=== PATIENT | male | born 1955 | race Caucasian/White ===

== ENCOUNTER 2019-08-06 12:26 | Outpatient (CLI) | payer MEDICARE, MEDICAID, SELFPAY ==
--- NOTE | ~2019-08-06 | CT_ITS ---
EXAMINATION: CT lung screening EXAM DATE: 08/06/2019 12:55 INDICATION: Personal history of nicotine dependence. Chest pain and shortness of breath. TECHNIQUE: Spiral low dose CT of the chest without contrast. Axial, coronal and sagittal images were reviewed. The dose-length product (DLP) for this examination was 74.92 mGy-cm. The exposure was ta ilored according to patient size (auto mA exposure control), and iterative reconstruction (ASIR) was used as additional dose reduction technique. Comparison is made to prior examination from 03/09/2017. FINDINGS: There is severe emphysema. Previously seen left lower lobe 5 mm nodule has resolved. Some small scattered linear post infectious opacities, regions of scarring. There are no suspicious opaci ties. Tracheobronchial tree is patent. There is no mediastinal, hilar or axillary lymphadenopathy. There are no pleural or pericardial effusions. There is no pneumothorax. Heart normal in size. There is mild to moderate coronary arterial calcification, arterial sclerosis. Upper abdomen is unr emarkable. There is thoracic spondylosis without osteoblastic or osteolytic lesions identified. IMPRESSION: Lung-RADS category 2, benign appearance or behavior (<1% chance of malignancy); recommend continued LDCT screening in 1 year. Reviewed, dictated and finalized at location A.
== END 2019-08-06 12:27 | disposition home or self-care (01) ==
PROVIDERS: PCP Internal Medicine; Visit Provider Internal Medicine
DX: Z12.2 Encounter for screening for malignant neoplasm of respiratory organs (principal); Z87.891 Personal history of nicotine dependence
CPT/HCPCS: G0297

== ENCOUNTER 2019-10-10 08:39 | Inpatient (IN) | payer MEDICARE, MEDICAID, SELFPAY ==
[2019-10-10] VITALS (23 sets, daily range): BP systolic 108–164; BP diastolic 72–114; PULSE 74–105; RESP 5–24; TEMP 36.3–36.8; O2SAT 84–98; BMI 19.1
--- NOTE | ~2019-10-10 | XR_ITS ---
EXAMINATION: XR chest 1V portable DATE: 10/10/2019 09:16 INDICATION: Shortness of breath. TECHNIQUE: A single frontal view of the chest was obtained on 2 radiographs. COMPARISON: Chest single view 02/18/2016, chest CT 08/06/2019 FINDINGS: The lungs are hyperexpanded with lucencies, consistent with emphysema. There is mild scarri ng in right lower lung zone. No pleural effusion or pneumothorax. The heart size is normal. IMPRESSION: 1. Severe emphysema. Reviewed, dictated and finalized at location A. IMPRESSION: 1. Severe emphysema.
--- NOTE | 2019-10-10 08:45 | ECG_ITS ---
Measurements Intervals [place] Rate: 93 P: 88 TN: 130 QRS: 82 QRSD: 90 T: 60 QT: 358 QTc: 447 Interpretive Statements SINUS RHYTHM POSSIBLE LEFT ATRIAL ENLARGEMENT LOW QRS VOLTAGE IN LIMB LEADS BORDERLINE R WAVE PROGRESSION, ANTERIOR LEADS BORDERLINE ST ABNORMALITY- INFERIOR LEADS BASELINE ARTIFACT- I, II, III, V1-V3 BORDERLINE ECG Electronically Signed On 10-10-2019 16:17:37 CDT by Osvaldo Joyner D.O.
--- NOTE | 2019-10-10 08:47 | ED.SOB ---
HPI - SOB/Dyspnea General Chief Complaint: Shortness of Breath/Dyspnea Stated Complaint: Diff breathing x 2 days History of Present Illness HPI Narrative: SOB for the past 2 days. Started after getting a pill caught in his throat. He has had a minimally productive cough. No fever. He has been too SOB to eat or sleep. Brought in by EMS on NRB. History mildly limited by condition. Related Data Home Medications Medication Instructions Recorded Confirmed albuterol sulfate 2.5 mg INHALATION Q4-6H PRN 02/26/19 10/10/19 citalopram 20 mg tablet 40 mg PO DAILY 02/26/19 10/10/19 omeprazole 40 mg capsule,delayed 40 mg PO DAILY 02/26/19 10/10/19 release oxybutynin chloride 10 mg 10 mg PO DAILY 02/26/19 10/10/19 tablet,extended release 24 hr simvastatin 20 mg tablet 20 mg PO DAILY 02/26/19 10/10/19 budesonide-formoterol HFA 160 2 puff INHALATION Q12H 02/27/19 10/10/19 mcg-4.5 mcg/actuation aerosol inhaler ropinirole 1 mg tablet 1 mg PO HS 02/27/19 10/10/19 ipratropium bromide 0.03 % nasal 2 spray NASAL BID 07/14/19 10/10/19 spray Allergies Allergy/AdvReac Type Severity Reaction Status Date / Time No Known Allergies Allergy Unknown Verified 10/10/19 12:12 Review of Systems Review of Systems: All systems reviewed & are unremarkable except as noted in HPI and below Constitutional: Constitutional: Reports fever(s) Cardiovascular: Cardiovascular: Denies chest pain Respiratory: Respiratory: Reports cough, Reports dyspnea and Reports wheezing Gastrointestinal: Gastrointestinal: Denies nausea PMFSH Past Medical History Medical History Chronic respiratory failure with hypoxia COPD, severe Former smoker Social History Social History (Updated 10/01/19 @ 13:39 by Viviane Abraham, [facility]) Smoking packs per day: 5 Smoking cigarettes per day: 100.0 Years smoked: 35 Smoking pack-years: 175.00 Smoking status: Former smoker Smoking end date: 03/12/07 Alcohol intake: former Substance use: former Substance use type: marijuana Last use: 40 years ago Spiritual care concerns: No Exam Const: General: alert and ill appearing Orientation/consciousness: patient oriented x3 Other: Moderate distress HENMT: Head: normal to inspection Eyes: Pupils: Equal, round and reactive pupils present Resp: Effort & Inspection: labored and tachypneic Auscultation: wheezes Cardio: Rate: tachycardic Rhythm: regular rhythm GI: GI Palp: Yes Soft to palpation and No Tenderness to palpation present (GI) Skin: General skin exam: normal color Neuro: General: patient oriented x3, moves all extremities and CN's II-XI intact bilaterally Extrem: General: no edema Course Vital Signs Vital signs: Vital Signs Temperature 36.3 C L 10/10/19 08:37 Pulse Rate 105 H 10/10/19 08:37 Respiratory Rate 20 10/10/19 08:37 Blood Pressure 164/114 H 10/10/19 08:37 Pulse Oximetry 97 10/10/19 08:37 Temperature 36.5 C 10/10/19 12:00 Pulse Rate 94 10/10/19 12:00 Respiratory Rate 21 H 10/10/19 12:00 Blood Pressure 145/84 H 10/10/19 12:00 Pulse Oximetry 97 10/10/19 12:00 MDM - SOB/Dyspnea MDM Narrative Medical decision making narrative: No consolidation on CXR. Continues to have significnat difficulty breathing despite continuous neb and solu-medrol. Differential Diagnosis Differential diagnosis: Likely acute exacerbation of chronic obstructive airways disease and community acquired pneumonia Medical Records Attestation: I reviewed the patient's medical records. Lab Data Attestation: I reviewed the patient's lab results. Result diagrams: 10/10/19 08:58 10/10/19 08:58 Labs: Lab Results 10/10/19 10/10/19 10/10/19 Range/Units 08:58 08:58 08:58 WBC 10.8 H (4.5-10.0) K/mm3 RBC 4.73 (4.6-6.20) M/mm3 Hgb 15.5 (14.0-18.0) g/dL Hct 45.8 (42.0-52.0) % MCV 96.8 (80-100) fl MCH 32.8 (26-34) pg MCHC 33.8 (32-36) g/dl RDW 11.
[2019-10-10] MEDS: methylPREDNISolone SOD SUCC 125 MG VIAL IV PUSH (08:55)
[2019-10-10] MEDS: ALBUTEROL SULFATE NEB 2.5 MG/0.5 ML INH 10 MG INHALATION (08:59)
[2019-10-10] MEDS: IPRATROPIUM BR 0.02% INH SOLN 0.5 MG/2.5 ML VIAL 1 MG INHALATION (08:59)
[2019-10-10 09:07] LABS: Alveolar/Arterial O2 Gradient 433.4 mmHg; Base Excess ABG 0.8 mEq/l (+/-2.0); Carboxyhemoglobin 0.9 % THb (0-2.0); Fractional Inspired Oxygen 100 %; HCO3 ABG 27.2 mEq/l (22.0-26.0); Methemoglobin ABG 0.4 %THb (0-1.5); Oxygen Content ABG 21.9 %vol (16.0-22.0); Oxygen Saturation ABG 99.5 % (95.0-100.0); Oxyhemoglobin 97.8 % THb (90.0-100.0); PCO2 ABG 49.7 mmHg (35.0-45.0); PO2 ABG 229.9 mmHg (80.0-100.0); Reduced Hemoglobin 0.9 %THb (0-5.0); Total Hemoglobin 15.6 g/dL (12.0-18.0); pH ABG 7.356 (7.350-7.450)
[2019-10-10 09:11] LABS: Device NON-REBREATHER MASK; Modified Allen's Test Pass; Site Drawn LEFT RADIAL
[2019-10-10 09:12] LABS: Basophils Absolute Auto 0.1 K/mm3 (0.0-0.1); Basophils Percent Auto 0.5 % (0.2-1.2); Eosinophils Absolute Auto 0.2 K/mm3 (0-0.3); Eosinophils Percent Auto 1.7 % (0-4.4); Hematocrit 45.8 % (42.0-52.0); Hemoglobin 15.5 g/dL (14.0-18.0); Immature Granulocyte Absolute 0.03 K/mm3 (0.00-0.031); Immature Granulocyte Percent A 0.3 % (0-0.5); Lymphocytes Absolute Auto 1.55 K/mm3 (0.9-3.2); Lymphocytes Percent Auto 14.4 % (18.3-44.2); Mean Corpuscular HGB Conc 33.8 g/dl (32-36); Mean Corpuscular Hemoglobin 32.8 pg (26-34); Mean Corpuscular Volume 96.8 fl (80-100); Mean Platelet Volume 9.4 fl (7.4-10.4); Monocytes Absolute Auto 1.3 K/mm3 (0.1-0.6); Monocytes Percent Auto 12.4 % (2.6-8.5); Neutrophils Absolute Auto 7.7 K/mm3 (1.3-6.7); Neutrophils Percent Auto 70.7 % (45.5-73.1); Platelet Count Result 278 k/mm3 (150-375); Red Blood Count 4.73 M/mm3 (4.6-6.20); Red Cell Distribution Width 11.7 % (11.5-14.5); White Blood Count 10.8 K/mm3 (4.5-10.0)
[2019-10-10 09:23] LABS: Anion Gap 13.5 mmol/L (7-16); Blood Urea Nitrogen 17 mg/dL (9-20); Calcium 9.4 mg/dL (8.4-10.2); Carbon Dioxide 30 mmol/L (22-30); Chloride 98 mmol/L (98-107); Estimated CRCL calculation 65 ml/min; Estimated Glomerular Filt Rate > 60; Glucose 93 mg/dL (75-110); Potassium 4.5 mmol/L (3.4-5.0); Sodium 137 mmol/L (137-145)
[2019-10-10] MEDS: OXYMETAZOLINE HCL 0.05% NAS 15 ML BTL (*BKC) 4 SPRAY NASAL (10:42)
--- NOTE | 2019-10-10 10:44 | PC.NURSE ---
Pt currently on 2L, this RN sat pt up to listen to lungs, and went over belongings list. Pt became very SOB. Pt O2 dropped into low 80s. This RN placed pt on 6 L. This RN encouraged pt to breath through his nose. Pt states he can't breath through his nose. This RN spoke with . new order for Afrin nasal spray
--- NOTE | 2019-10-10 11:44 | PC.NURSE ---
This patient, Terrence Dugan, was admitted to 2 Medical Room 259-01. Patient/family oriented to hospital policies and general routines including ID bracelet, bed and alarms, visiting hours, pain management, procedures, bathroom and other care routines, personal items, smoking policy, room service/diet, and visiting hours. Valuables list has been completed. Information on how to activate the Rapid Response Team has been discussed. Patient/Family are encouraged to report perceived risks to care and to ask questions if they do not understand what they are told or what they should do.
[2019-10-10] MEDS: LACTATED RINGERS 1,000 ML 75 ML IV CONT (12:02)
[2019-10-10] MEDS: IPRATROPIUM BR 0.02% INH SOLN 0.5 MG/2.5 ML VIAL INHALATION ×2 (14:31→20:56)
[2019-10-10] MEDS: ALBUTEROL SULFATE NEB 2.5 MG/0.5 ML INH 5 MG INHALATION ×2 (14:31→20:56)
--- NOTE | 2019-10-10 15:03 | PM.IMHP ---
H&P: HPI History of Present Illness Date/Time: 10/10/19 15:03 Chief complaint: COPD exacerbation Narrative: Terrence Dugan is a 63 year old maleWho has a history of end-stage COPD. He is followed by the pulmonology group here. The patient was last seen by Chaparro Torres on 10/01/2019. This was a 7 month follow-up for COPD with chronic oxygen. The patient typically wears 2-3 L at rest and 3-4 L with exertion. The patient is supposed to be wearing at night but he takes care of his mother who has dementia and feels that he cannot hear her with the oxygen on at night. The patient has decided that he does not want to have an evaluation for lung transplant because he is taking care of his mother. The patient stated for the last 2 days he has gotten more short of breath than normal. He has been coughing but has not had any fever chills. He has been using his nebulizer treatments more recently. He also has inhaled steroids but no oral steroids at home. I asked him if he had called the patient transition specialist and he said he had not. He saw the last on 10/01/2019 but was not having these difficulties that he has had the last 2 days. He has had a nonproductive cough. He is now to 5 L per nasal cannula. The patient stated that he had smoked up to 5 packs of cigarettes a day and then got down to 2 and half packs a cigarettes a day. He attempted to quit several times. He stated he finally quit in Two thousand eight. Chest x-ray was read as severe emphysema. The patient did have a CT the lung on 08/06/2019 which shows lung rads category 2 benign appearance are behavior. Suggested 1 year screening. The patient was given a nebulizer treatment and high-dose Solu-Medrol in the emergency room. The patient is able to talk in full sentences but gets short of breath with minimal exertion. The patient denies any sleep apnea. The patient was concerned about being admitted to the hospital as his mother has dementia and he is the sole provider for her. the patient contacted many of his friends and was finally able to acquire assistance with his mother so he agreed to stay in the hospital. I have spent at least 60 minutes with the patient today for admission date of service 10/10/2019 Review of Systems Review of Systems: All systems reviewed & are unremarkable except as noted in HPI and below Constitutional: Constitutional: Reports as per HPI and Reports no additional constitutional complaints Eyes: Eyes: Reports as per HPI and Reports no additional eye complaints ENT: Reports system reviewed and no additional complaints, except as documented and Reports Normal hearing present Cardiovascular: Cardiovascular: Reports no additional cardiovascular complaints Respiratory: Respiratory: Reports no additional respiratory complaints and Reports no additional respiratory complaints Gastrointestinal: Gastrointestinal: Reports as per HPI and Reports no additional gastrointestinal complaints Musculoskeletal: Musculoskeletal: Reports no additional musculoskeletal complaints Integumentary/Breasts: Skin/Breast: Reports system reviewed and no additional complaints, except as docu and Reports as per HPI Neurologic: Reports system reviewed and no additional complaints, except as documented, Reports as per HPI and Reports Normal hearing present Psychiatric: Psychiatric: Reports no additional psychiatric complaints and Reports as per HPI Endocrine: Endocrine: Reports no additional endocrine complaints Hematologic/Lymphatic: Hematologic/Lymphatic: Reports no additional hematologic/lymphatic complaints Allergic/Immunologic: Allergic/Immunologic: Reports no additional allergic/immunologic complaints [facility] Past Medical History Medical History (Updated 10/10/19 @ 15:12 by Phuong Oden NP) Anxiety and depression Chronic respiratory failure with hypoxia he chronically wears 2-3 L at rest and 3-4 with exertion COPD, severe Former smoker Hip fracture requiring operative repa
[2019-10-10] MEDS: methylPREDNISolone SOD SUCC 125 MG VIAL 80 MG IV PUSH ×2 (17:16→23:25)
[2019-10-10] MEDS: rOPINIRole HCL 1 MG TABLET PO (20:14)
[2019-10-10] MEDS: IPRATROPIUM NASAL SPRAY 0.03% 15 ML BOTTLE 2 SPRAY NASAL (20:14)
[2019-10-10] MEDS: PANTOPRAZOLE 40 MG TABLET PO (20:14)
[2019-10-10] MEDS: TEMAZEPAM 15 MG CAPSULE PO (22:26)
[2019-10-11] VITALS (21 sets, daily range): BP systolic 103–139; BP diastolic 64–89; PULSE 79–108; RESP 18–24; TEMP 36.8–37.2; O2SAT 91–99
[2019-10-11] MEDS: IPRATROPIUM BR 0.02% INH SOLN 0.5 MG/2.5 ML VIAL INHALATION ×4 (01:23→20:30)
[2019-10-11] MEDS: ALBUTEROL SULFATE NEB 2.5 MG/0.5 ML INH 5 MG INHALATION ×4 (01:23→20:30)
[2019-10-11] MEDS: methylPREDNISolone SOD SUCC 125 MG VIAL 80 MG IV PUSH (05:50)
[2019-10-11] MEDS: PANTOPRAZOLE 40 MG TABLET PO ×2 (08:57→21:01)
[2019-10-11] MEDS: IPRATROPIUM NASAL SPRAY 0.03% 15 ML BOTTLE 2 SPRAY NASAL ×2 (08:57→21:02)
[2019-10-11] MEDS: CITALOPRAM HYDROBROMIDE 20 MG TABLET 40 MG PO (08:57)
[2019-10-11] MEDS: SIMVASTATIN 20 MG TABLET PO (08:58)
[2019-10-11 09:13] LABS: Anion Gap 14.9 mmol/L (7-16); Blood Urea Nitrogen 24 mg/dL (9-20); Calcium 9.2 mg/dL (8.4-10.2); Carbon Dioxide 28 mmol/L (22-30); Chloride 97 mmol/L (98-107); Estimated CRCL calculation 84 ml/min; Estimated Glomerular Filt Rate > 60; Glucose 140 mg/dL (75-110); Potassium 4.9 mmol/L (3.4-5.0); Sodium 135 mmol/L (137-145)
--- NOTE | 2019-10-11 12:10 | PM.IMPN ---
Progress Note: A&P Assessment and Plan (1) Acute exacerbation of chronic obstructive airways disease: Code(s): J44.1 - Chronic obstructive pulmonary disease with (acute) exacerbation Status: Acute Assessment and Plan: aspiration seem to trigger this episode when steroids increase activity as tolerated (2) Chronic respiratory failure with hypoxia: Code(s): J96.11 - Chronic respiratory failure with hypoxia Status: Chronic Assessment and Plan: continue oxygen therapy (3) Hypertension: Qualifiers: Hypertension type: unspecified Qualified Code(s): I10 - Essential (primary) hypertension Code(s): I10 - Essential (primary) hypertension Status: Chronic Assessment and Plan: stable on current regimen (4) Anxiety and depression: Code(s): F41.9 - Anxiety disorder, unspecified; F32.9 - Major depressive disorder, single episode, unspecified Status: Chronic Assessment and Plan: continue current regimen Subjective Date/time seen: 10/11/19 12:10 Interval history: 2 days [employer] choked on 2 pills. Tried to force it down with water and choked more. Baseline oxygen requirement is 3 L. Some pain right chest with coughing. Review of Systems Review of Systems: All systems reviewed & are unremarkable except as noted in HPI and below Exam Narrative: Exam Narrative: HEENT: EOMI, PERRL, sclerae nonicteric, pharyngeal mucosa pink and intact NECK: No JVD, adenopathy, or thyromegaly CHEST: Coarse BS with mild tachypnea HEART: NL S1/S2, regular, no murmur ABDOMEN: BS+, soft, nontender, no mass, no bruits EXTREMITIES: No cyanosis, edema, or clubbing NEUROLOGIC: CN intact and symmetric to inspection. MUSCULOSKELETAL: Tone and strength symmetric. PSYCH: Alert. Oriented to person, place, and time. Objective Data Vital Signs Vital Signs: Vital Signs - 24 hr 10/10/19 14:00 10/10/19 14:33 10/10/19 14:36 Temperature 98 F Pulse Rate 86 92 Respiratory Rate 20 20 Blood Pressure 157/83 H Pulse Oximetry 98 98 10/10/19 16:00 10/10/19 20:00 10/10/19 20:57 Temperature Pulse Rate 99 92 88 Respiratory Rate 18 Blood Pressure Pulse Oximetry 10/10/19 21:08 10/10/19 22:00 10/11/19 00:00 Temperature 98.2 F Pulse Rate 89 91 91 Respiratory Rate 18 20 Blood Pressure 145/79 H Pulse Oximetry 95 10/11/19 01:23 10/11/19 01:30 10/11/19 01:40 Temperature Pulse Rate 79 84 84 Respiratory Rate 18 18 18 Blood Pressure Pulse Oximetry 98 10/11/19 04:00 10/11/19 06:00 10/11/19 07:55 Temperature 98.2 F Pulse Rate 80 83 82 Respiratory Rate 18 18 Blood Pressure 119/64 Pulse Oximetry 99 10/11/19 07:57 10/11/19 08:00 10/11/19 08:01 Temperature Pulse Rate 91 86 Respiratory Rate 18 Blood Pressure Pulse Oximetry 98 Intake/Output Intake/Output: Intake & Output 10/08/19 10/09/19 10/10/19 10/11/19 23:59 23:59 23:59 23:59 Intake Total 1914 290 Output Total 250 500 Balance 1664 -210 Meds/Results Medications: Active Medications Generic Name Dose Route Start Last Admin Trade Name Nelson PRN Reason Stop Dose Admin Albuterol 5 mg 10/10/19 14:00 10/11/19 07:54 Albuterol Sulf Neb 2.5mg/0.5ml INHALATION 5 mg Q6HRT EARLINE Administration Budesonide/Formoterol Fumarate 2 puff 10/10/19 20:00 10/11/19 07:54 Symbicort 160-4.5 Mcg (*Sp) Inhaler INHALATION 2 puff Q12HRT EARLINE Administration Citalopram Hydrobromide 40 mg 10/11/19 09:00 10/11/19 08:57 Celexa PO 40 mg DAILY EARLINE Administration Ipratropium [place] 0.5 mg 10/10/19 14:00 10/11/19 07:54 Atrovent Neb INHALATION 0.5 mg Q6HRT EARLINE Administration Ipratropium [place] 2 spray 10/10/19 21:00 10/11/19 08:57 Atrovent Nasal [place] 0.03% NASAL 2 spray Q12HR EARLINE Administration Methylprednisolone Sodium Succinate 80 mg 10/10/19 18:00 10/11/19 05:50 Solu-Medrol IV PUSH 80 mg Q6H
--- NOTE | 2019-10-11 20:55 | PM.CNPUL ---
History of Present Illness History of Present Illness Consult date: 10/11/19 Requesting physician: Kacy Mayfield PA-C Reason for consult: COPD Chief complaint: COPD exacerbation Narrative: This patient was not seen during this stay, was discharged before I could do his consult. No consult was performed. [facility] Social History Social History Social History: The patient was once for 5 years and . He has no children. He was heavy drinker up until 1986 when he went to rehab. he stated that he smoked of the 5 packs of cigarettes a day after he quit drinking. He then cut down to 2 and half packs of cigarettes. He tried quitting several times but it was not until 2007 that he quit for good. He denied any marijuana or illicit drug use. He does not have a durable power assistant county attorney for healthcare. And he desires to be a DNR. He lives with his mother and takes care of her she has end-stage dementia. He is considered disabled. Smoking packs per day: 2.5 Smoking cigarettes per day: 50.0 Years smoked: 35 Smoking pack-years: 87.50 Smoking status: Former smoker Tobacco type: cigarettes Second hand tobacco smoke exposure: No Smoking end date: 03/12/07 Alcohol intake: former Substance use: never Substance use type: marijuana Last use: 40 years ago Gender identity (if verbalized by the patient): Male Spiritual care concerns: No Meds Home Medications and Allergies Home Medications Medication Instructions Recorded Confirmed Type citalopram 20 mg tablet 40 mg PO DAILY 02/26/19 10/16/19 History omeprazole 40 mg capsule,delayed 40 mg PO DAILY 02/26/19 10/16/19 History release oxybutynin chloride 10 mg 10 mg PO DAILY 02/26/19 10/16/19 History tablet,extended release 24 hr simvastatin 20 mg tablet 20 mg PO DAILY 02/26/19 10/16/19 History budesonide-formoterol HFA 160 2 puff INHALATION Q12H 02/27/19 10/16/19 History mcg-4.5 mcg/actuation aerosol inhaler ipratropium bromide 0.02 % 2.5 ml INHALATION Q6H PRN #150 ml 02/27/19 10/16/19 Rx solution for inhalation ropinirole 1 mg tablet 1 mg PO HS 02/27/19 10/16/19 History temazepam 15 mg capsule 15 mg PO .QHS PRN #30 cap 07/11/19 10/16/19 Rx ipratropium bromide 0.03 % nasal 2 spray NASAL BID 07/14/19 10/16/19 History spray albuterol sulfate 90 mcg/actuation 1 inhalation INHALATION Q4-6H PRN 10/01/19 10/16/19 Rx aerosol inhaler #8.5 gm prednisone See Rx Instructions .ROUTE 10/13/19 10/16/19 Rx .COMPLEX #21 tablet ipratropium-albuterol 3 ml INHALATION Q6H PRN 10/16/19 10/16/19 History finasteride [Proscar] 5 mg PO QAM 30 Days #30 tablet 10/17/19 Rx tamsulosin 0.4 mg PO QAM 30 Days #30 cap 10/17/19 Rx albuterol sulfate 5 mg INHALATION Q6HRT #30 ea 10/23/19 Rx alprazolam 0.25 mg PO TID PRN #30 tablet 10/23/19 Rx aspirin 81 mg PO QAM #30 tablet 10/23/19 Rx atorvastatin 40 mg PO HS #30 tablet 10/23/19 Rx trazodone 50 mg PO HS PRN #30 tablet 10/23/19 Rx Allergies Allergy/AdvReac Type Severity Reaction Status Date / Time No Known Allergies Allergy Unknown Verified 10/15/19 19:35 Vital Signs Vital Signs - 24 hr 10/10/19 20:57 10/10/19 21:08 10/10/19 22:00 Temperature 36.8 C Pulse Rate 88 89 91 Respiratory Rate 18 18 20 Blood Pressure 145/79 H Pulse Oximetry 95 10/11/19 00:00 10/11/19 01:23 10/11/19 01:30 Temperature Pulse Rate 91 79 84 Respiratory Rate 18 18 Blood Pressure Pulse Oximetry 10/11/19 01:40 10/11/19 04:00 10/11/19 06:00 Temperature 36.8 C Pulse Rate 84 80 83 Respiratory Rate 18 18 Blood Pressure 119/64 Pulse Oximetry 98 99 10/11/19 07:55 10/11/19 07:57 10/11/19 08:00 Temperature Pulse Rate 82 91 Respiratory Rate 18 Blood Pressure Pulse Oximetry 98 10/11/19 08:01 10/11/19 08:45 10/11/19 12:00 Temperature Pulse Rate 86 102 H Respiratory Rate 18 Blood Pressure Puls
[2019-10-11] MEDS: rOPINIRole HCL 1 MG TABLET PO (21:01)
[2019-10-11] MEDS: TEMAZEPAM 15 MG CAPSULE PO (22:25)
[2019-10-12] VITALS (18 sets, daily range): BP systolic 111–139; BP diastolic 60–84; PULSE 81–106; RESP 20–22; TEMP 36.9–37.2; O2SAT 89–97
[2019-10-12] MEDS: ALBUTEROL SULFATE NEB 2.5 MG/0.5 ML INH 5 MG INHALATION ×4 (02:17→19:50)
[2019-10-12] MEDS: IPRATROPIUM BR 0.02% INH SOLN 0.5 MG/2.5 ML VIAL INHALATION ×4 (02:18→19:50)
[2019-10-12 08:32] LABS: Blood Urea Nitrogen 24 mg/dL (9-20); Calcium 8.7 mg/dL (8.4-10.2); Carbon Dioxide 32 mmol/L (22-30); Chloride 95 mmol/L (98-107); Estimated CRCL calculation 64 ml/min; Estimated Glomerular Filt Rate > 60; Glucose 93 mg/dL (75-110); Sodium 133 mmol/L (137-145)
[2019-10-12] MEDS: PANTOPRAZOLE 40 MG TABLET PO ×2 (09:59→20:34)
[2019-10-12] MEDS: IPRATROPIUM NASAL SPRAY 0.03% 15 ML BOTTLE 2 SPRAY NASAL ×2 (09:59→20:34)
[2019-10-12] MEDS: CITALOPRAM HYDROBROMIDE 20 MG TABLET 40 MG PO (09:59)
[2019-10-12] MEDS: predniSONE 20 MG TABLET 40 MG PO (09:59)
[2019-10-12] MEDS: SIMVASTATIN 20 MG TABLET PO (09:59)
--- NOTE | 2019-10-12 12:29 | PM.IMPN ---
Progress Note: A&P Assessment and Plan (1) Acute exacerbation of chronic obstructive airways disease: Code(s): J44.1 - Chronic obstructive pulmonary disease with (acute) exacerbation Status: Acute Assessment and Plan: This seemed to have been triggered by an episode of aspiration in which he choked on 2 pills and had severe episode of coughing after. Continue steroid taper. Continue bronchodilators Supplemental O2. He is maintaining adequate oxygenation on his chronic 3L. Increase activity as tolerated Will add short course of Mucinex to assist with mobilizing secretions Dr. Ramirez had been consulted and recommendations are appreciated. He is established with Dr. Ramirez. (2) Chronic respiratory failure with hypoxia: Code(s): J96.11 - Chronic respiratory failure with hypoxia Status: Chronic Assessment and Plan: He is on oxygen 2-3L rest and 3-4L with exertion. He has been instructred to wear O2 with sleep but doesn't want to. He tracks his saturations at home. continue oxygen therapy. Goal is 90-94% (3) Hypertension: Qualifiers: Hypertension type: unspecified Qualified Code(s): I10 - Essential (primary) hypertension Code(s): I10 - Essential (primary) hypertension Status: Chronic Assessment and Plan: BP evaluated and is well controlled. He does not appear to be on any antihypertensives on home regimen. Continue to monitor blood pressures closely. (4) Anxiety and depression: Code(s): F41.9 - Anxiety disorder, unspecified; F32.9 - Major depressive disorder, single episode, unspecified Status: Chronic Assessment and Plan: Chronic and stable. Continue citalopram Subjective Date/time seen: 10/12/19 12:29 Interval history: Date of service: 10/12/2019 Mr. Dugan reports overall he feels improved but is still short of breath. He feels like he is still having increased work of breathing. He has a dry cough and feels that he is unable to mobilize his secretions. He has pain in his right costal region and anterior sternal region when he has coughing episodes. He also complains of a tension type headache that worsens with cough. He has had very minimal sputum production that he described as brown in color. He denies fever, chills, nausea, vomiting, dizziness, lightheadedness, abdominal pain, diarrhea, palpitations, bleeding, or bruising. His appetite has been good. Review of Systems Review of Systems: Narrative: A 12 point review of systems was reviewed with pertinent positives and negatives as per HPI. Exam Narrative: Exam Narrative: Mr. Dugan is examined alone today. He is a well nourished 63 year old male who is lying supine in bed. He appears comfortable and is in no acute distress. HR 88, BP 111/74, RR 20 T 98.9, 97% on 3L. Neuro: awake, alert and oriented x4, speech clear, no focal neuro deficits noted HEENMT: normocephalic, atraumatic, EOMI, sclerae anicteric, moist oral mucosa, tongue midline Neck: supple, no lymphadenopathy Respiratory: clear to auscultation bilaterally, mildly increased work of breathing Cardio: regular rate, regular rhythm, no murmur noted Abdomen: normal to inspection, soft, nontender, no masses, bowel sounds present : Extremities: no edema, no erythema, no pain to palpation, dorsal pedis pulses present bilaterally Skin: no rashes or lesions, warm and dry Psych: normal mood and affect Objective Data Vital Signs Vital Signs: Vital Signs - 24 hr 10/11/19 13:32 10/11/19 13:37 10/11/19 14:00 Temperature 98.8 F Pulse Rate 98 102 H 108 H Respiratory Rate 18 18 24 H Blood Pressure 103/65 Pulse Oximetry 95 10/11/19 16:00 10/11/19 20:00 10/11/19 20:30 Temperature Pulse Rate 100 94 94 Respiratory Rate 20 Blood Pressure Pulse Oximetry 92 10/11/19 20:41 10/11/19 21:02 10/11/19 22:00 Temperature 99.0 F Pulse Rate 95 95 97 Respiratory Rate 20 20
[2019-10-12] MEDS: rOPINIRole HCL 1 MG TABLET PO (20:34)
[2019-10-12] MEDS: guaiFENesin 12 HR 600 MG TABCR PO (20:34)
[2019-10-12] MEDS: TEMAZEPAM 15 MG CAPSULE PO (23:00)
[2019-10-13] VITALS (8 sets, daily range): BP systolic 127; BP diastolic 77; PULSE 78–104; RESP 16–20; TEMP 37; O2SAT 92–99
[2019-10-13] MEDS: IPRATROPIUM BR 0.02% INH SOLN 0.5 MG/2.5 ML VIAL INHALATION ×2 (02:02→08:35)
[2019-10-13] MEDS: ALBUTEROL SULFATE NEB 2.5 MG/0.5 ML INH 5 MG INHALATION ×2 (02:02→08:35)
[2019-10-13] MEDS: CITALOPRAM HYDROBROMIDE 20 MG TABLET 40 MG PO (08:22)
[2019-10-13] MEDS: guaiFENesin 12 HR 600 MG TABCR PO (08:22)
[2019-10-13] MEDS: IPRATROPIUM NASAL SPRAY 0.03% 15 ML BOTTLE 2 SPRAY NASAL (08:22)
[2019-10-13] MEDS: predniSONE 20 MG TABLET 40 MG PO (08:22)
[2019-10-13] MEDS: SIMVASTATIN 20 MG TABLET PO (08:23)
[2019-10-13] MEDS: PANTOPRAZOLE 40 MG TABLET PO (08:23)
[2019-10-13 08:49] LABS: Anion Gap 10.2 mmol/L (7-16); Blood Urea Nitrogen 22 mg/dL (9-20); Calcium 8.5 mg/dL (8.4-10.2); Carbon Dioxide 34 mmol/L (22-30); Chloride 95 mmol/L (98-107); Estimated CRCL calculation 73 ml/min; Estimated Glomerular Filt Rate > 60; Glucose 93 mg/dL (75-110); Potassium 4.2 mmol/L (3.4-5.0); Sodium 135 mmol/L (137-145)
--- NOTE | 2019-10-13 10:06 | PM.DS ---
DS: Admitting Diagnosis Admitting Diagnosis Admitting Diagnosis: Chronic respiratory failure with hypoxia DS: Discharge Diagnosis Discharge Diagnosis (1) Acute exacerbation of chronic obstructive airways disease: Code(s): J44.1 - Chronic obstructive pulmonary disease with (acute) exacerbation Status: Acute Assessment and Plan: This seemed to have been triggered by an episode of aspiration in which he choked on 2 pills and then complained of shortness of breath and cough. CXR shows severe emphysema. Aspiration pneumonia was considered, however there was no evidence of consolidation on x-ray and he did not have fever or additional signs of infection. He did not have sputum production and antibiotics were not felt to be warranted. Preliminary blood culture showed NGTD and final cultures will be monitored. He was started on IV solumedrol and transitioned to PO prednisone. He received nebulized breathing treatments. He maintained adequate oxygenation on his typical 2-3L O2. He will continue a PO prednisone taper. (2) Chronic respiratory failure with hypoxia: Code(s): J96.11 - Chronic respiratory failure with hypoxia Status: Chronic Assessment and Plan: He is established with pulmonology. He is on oxygen 2-3L rest and 3-4L with exertion. He has been instructred to wear O2 with sleep but he does not. He tracks his saturations at home. Continue oxygen therapy. Goal is 90-94% (3) Hypertension: Qualifiers: Hypertension type: unspecified Qualified Code(s): I10 - Essential (primary) hypertension Code(s): I10 - Essential (primary) hypertension Status: Chronic Assessment and Plan: BP evaluated and was well controlled. He does not appear to be on any antihypertensives on home regimen. (4) Anxiety and depression: Code(s): F41.9 - Anxiety disorder, unspecified; F32.9 - Major depressive disorder, single episode, unspecified Status: Chronic Assessment and Plan: Chronic and stable. Continue citalopram DS: Summary Hospital Course Reason for hospitalization: Shortness of breath Hospital Course: Date of admission: 10/10/2019 Date of discharge: 10/13/2019 Terrence Dugan is a 63-year-old male former smoker with a history of severe COPD and chronic respiratory failure with hypoxia who presented to the emergency department on 10/10/2019 with complaints of shortness of breath that has been ongoing for 2 days. This began after he choked on 2 pills. He complained nonproductive cough. He did not have any fevers. he was brought in via EMS on non-rebreather.At presentation, AVSS, WBC 10.8, electrolytes stable, ABG with normal O2 saturation and normal pH, and CXR showing severe emphysema. He was admitted to the hospitalist service for further evaluation management his COPD exacerbation. He was treated with steroids and bronchodilators. he denied have dysphagia or odynophagia. He was able to tolerate swallowing liquids, solid foods, and pills. His symptoms improved and he requested discharge. Given his stable oxygen requirements, he was determined to no longer require inpatient care. He will continue a prednisone taper. We discussed worrisome signs and symptoms for which he should return as well as his medications. All of his questions were answered. I encouraged him to take only one medication at a time. Please see above for further details. He was discharged home in hemodynamically stable condition on 10/13/2019. Status at Discharge Functional status at discharge: independent ambulation Overall status at discharge: patient is progressing back to baseline Time Spent with Patient Time attestation: Total time spent providing and/or coordinating discharge services: 41 minutes Time spent: Greater than 30 minutes Exam Narrative: Exam Narrative: Mr. Dugan is examined alone today. He is a well nourished 63 year old male who is lying supine in bed. He bryan
== END 2019-10-13 14:15 | disposition home or self-care (01) | DRG 191 ==
LOC: ANHED 09:36 → ANH2MED 12:03
PROVIDERS: Internal Medicine; Admitting Provider Family Medicine; Emergency Provider Emergency Medicine; PCP Internal Medicine; Visit Provider Physician Assistant
DX: J44.1 Chronic obstructive pulmonary disease with (acute) exacerbation (principal); J96.11 Chronic respiratory failure with hypoxia; Z87.891 Personal history of nicotine dependence; G47.00 Insomnia, unspecified; I10 Essential (primary) hypertension
CPT/HCPCS: 36415; 36600; 71045; 80048; 82375; 82805; 83050; 85025; 87040; 93005; 94640; 96374; 99285; A9270; J2930; J7120; J7512

== ENCOUNTER 2019-10-15 16:11 | Inpatient (IN) | payer MEDICARE, MEDICAID, SELFPAY ==
[2019-10-15] VITALS (8 sets, daily range): BP systolic 110–160; BP diastolic 70–100; PULSE 82–104; RESP 18–24; TEMP 37.2; O2SAT 95–98; BMI 18.4
--- NOTE | ~2019-10-15 | XR_ITS ---
EXAMINATION: XR chest 2V EXAM DATE: 10/15/2019 17:00 INDICATION: Shortness of breath. TECHNIQUE: Frontal and lateral projections of the chest obtained and reviewed. Comparison is made to prior examination from 10/10/2019. FINDINGS: Severe hyperinflation. The lungs are clear. There are no pleural effusions. The cardiome diastinal silhouette is within normal limits. There is no pneumothorax suspected. The bones and sof t tissues are unremarkable. IMPRESSION: 1. No acute cardiopulmonary findings. 2. Hyperinflation. Reviewed, dictated and finalized at location A.
--- NOTE | 2019-10-15 16:31 | ECG_ITS ---
Measurements Intervals [place] Rate: 101 P: 91 WA: 120 QRS: 95 QRSD: 83 T: 132 QT: 351 QTc: 455 Interpretive Statements SINUS TACHYCARDIA LIMB LEAD REVERSAL POSSIBLE RIGHT ATRIAL ENLARGEMENT POSSIBLE LEFT ATRIAL ENLARGEMENT DELAYED PRECORDIAL R/S TRANSITION LOW QRS VOLTAGE IN LIMB LEADS BASELINE ARTIFACT- II, III, AVR, AVL, AVF, V1-V3 BORDERLINE ECG Electronically Signed On 10-15-2019 17:54:59 CDT by Osvaldo Joyner D.O.
[2019-10-15 16:52] LABS: Basophils Percent Auto 0.1 % (0.2-1.2); Hematocrit 45.5 % (42.0-52.0); Hemoglobin 15.6 g/dL (14.0-18.0); Immature Granulocyte Absolute 0.06 K/mm3 (0.00-0.031); Immature Granulocyte Percent A 0.4 % (0-0.5); Lymphocytes Absolute Auto 0.56 K/mm3 (0.9-3.2); Lymphocytes Percent Auto 4.1 % (18.3-44.2); Mean Corpuscular HGB Conc 34.3 g/dl (32-36); Mean Corpuscular Hemoglobin 32.5 pg (26-34); Mean Corpuscular Volume 94.8 fl (80-100); Mean Platelet Volume 9.8 fl (7.4-10.4); Monocytes Absolute Auto 1.2 K/mm3 (0.1-0.6); Monocytes Percent Auto 8.6 % (2.6-8.5); Neutrophils Absolute Auto 11.8 K/mm3 (1.3-6.7); Neutrophils Percent Auto 86.8 % (45.5-73.1); Platelet Count Result 312 k/mm3 (150-375); Red Cell Distribution Width 11.2 % (11.5-14.5); White Blood Count 13.6 K/mm3 (4.5-10.0)
--- NOTE | 2019-10-15 17:14 | ED.GENADULT ---
HPI - General Adult General Chief complaint: Shortness of Breath/Dyspnea Stated complaint: CP Time Seen by Provider: 10/15/19 16:17 History of Present Illness HPI narrative: Patient is a 63 y/o male complaining moderate SOB since yesterday. He uses Nebulizer which helps his breathing. He has some cough and chest pain. He also developed leg swelling yesterday. He denies any fever. He was recently hospitalized for COPD. He is on home O2 at 3L/NC. Related Data Home Medications Medication Instructions Recorded Confirmed albuterol sulfate 2.5 mg INHALATION Q4-6H PRN 02/26/19 10/10/19 citalopram 20 mg tablet 40 mg PO DAILY 02/26/19 10/10/19 omeprazole 40 mg capsule,delayed 40 mg PO DAILY 02/26/19 10/10/19 release oxybutynin chloride 10 mg 10 mg PO DAILY 02/26/19 10/10/19 tablet,extended release 24 hr simvastatin 20 mg tablet 20 mg PO DAILY 02/26/19 10/10/19 budesonide-formoterol HFA 160 2 puff INHALATION Q12H 02/27/19 10/10/19 mcg-4.5 mcg/actuation aerosol inhaler ropinirole 1 mg tablet 1 mg PO HS 02/27/19 10/10/19 ipratropium bromide 0.03 % nasal 2 spray NASAL BID 07/14/19 10/10/19 spray acetaminophen [Tylenol] 650 mg PO HS 10/15/19 calcium polycarbophil [Fiber-Lax] 1,250 mg PO HS 10/15/19 prednisone 10 mg PO DAILY 10/15/19 10/15/19 Allergies Allergy/AdvReac Type Severity Reaction Status Date / Time No Known Allergies Allergy Unknown Verified 10/15/19 19:35 Review of Systems Constitutional: Constitutional: Denies chills, Denies fever(s), Denies headache(s) and Denies weakness Eyes: Eyes: Denies blurry vision ENT: Denies headache(s) and Denies neck pain Cardiovascular: Cardiovascular: Reports chest pain, Reports leg edema and Reports dyspnea Respiratory: Respiratory: Reports cough and Reports dyspnea Gastrointestinal: Gastrointestinal: Denies abdominal pain, Denies diarrhea, Denies nausea and Denies vomiting Genitourinary: Genitourinary: Denies hematuria and Denies dysuria Musculoskeletal: Musculoskeletal: Denies back pain and Denies neck pain Neurologic: Denies headache(s) and Denies weakness PMFSH Past Medical History Medical History Anxiety and depression Chronic respiratory failure with hypoxia he chronically wears 2-3 L at rest and 3-4 with exertion COPD, severe Former smoker Hip fracture requiring operative repair pinning History of alcohol abuse Hyperlipidemia Hypertension Surgical History Surgical History History of hip surgery pinnning Family History Family History Mother Dementia Father 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 Social History Social History Social History: The patient was once for 5 years and . He has no children. He was heavy drinker up until 1986 when he went to rehab. he stated that he smoked of the 5 packs of cigarettes a day after he quit drinking. He then cut down to 2 and half packs of cigarettes. He tried quitting several times but it was not until 2007 that he quit for good. He denied any marijuana or illicit drug use. He does not have a durable power real estate associate attorney for healthcare. And he desires to be a DNR. He lives with his mother and takes care of her she has end-stage dementia. He is considered disabled. Smoking packs per day: 2.5 Smoking cigarettes per day: 50.0 Years smoked: 35 Smoking pack-years: 87.50 Smoking status: Former smoker Tobacco type: cigarettes Second hand tobacco smoke exposure: No Smoking end date: 03/12/07 Alcohol intake: former Substance use: never Substance use type: marijuana Last use: 40 years ago Gender identity (if verbalized by the patient): Male Spiritual care concerns: No Exam Const: General: no acute distress and well developed
[2019-10-15 17:58] LABS: Anion Gap 8.7 mmol/L (7-16); Blood Urea Nitrogen 26 mg/dL (9-20); Calcium 8.7 mg/dL (8.4-10.2); Carbon Dioxide 34 mmol/L (22-30); Chloride 96 mmol/L (98-107); Estimated Glomerular Filt Rate > 60; Glucose 116 mg/dL (75-110); Potassium 4.7 mmol/L (3.4-5.0); Sodium 134 mmol/L (137-145)
[2019-10-15] MEDS: IPRATROPIUM BR 0.02% INH SOLN 0.5 MG/2.5 ML VIAL INHALATION (18:26)
[2019-10-15] MEDS: ALBUTEROL SULFATE NEB 2.5 MG/0.5 ML INH INHALATION (18:26)
[2019-10-15 18:30] LABS: Alveolar/Arterial O2 Gradient 100.9 mmHg; Base Excess ABG 7.1 mEq/l (+/-2.0); Fractional Inspired Oxygen 32 %; HCO3 ABG 33.9 mEq/l (22.0-26.0); Oxygen Content ABG 20.4 %vol (16.0-22.0); Oxygen Saturation ABG 91.5 % (95.0-100.0); Oxyhemoglobin 90.2 % THb (90.0-100.0); PCO2 ABG 55.6 mmHg (35.0-45.0); PO2 ABG 62.2 mmHg (80.0-100.0); PO2 FiO2 Ratio Arterial Blood 1.94 %; Total Hemoglobin 16.1 g/dL (12.0-18.0); pH ABG 7.403 (7.350-7.450)
[2019-10-15 18:31] LABS: Device NASAL CANNULA; Modified Allen's Test Pass; Site Drawn LEFT RADIAL
--- NOTE | 2019-10-15 20:00 | PC.NURSE ---
Called lab to add on D-Dimer
[2019-10-15 20:27] LABS: D Dimer 0.27 ug/mL (<0.48)
[2019-10-15 20:52] LABS: NT Pro B Type Natriuretic Pept 773 PG/ML (5-100)
[2019-10-15 21:00] LABS: Troponin I 0.225 ng/mL (0.000-0.034)
[2019-10-15] MEDS: ASPIRIN 81 MG CHEWABLE TABLET 324 MG PO (22:26)
[2019-10-15] MEDS: FUROSEMIDE INJ 40 MG/4 ML VIAL IV PUSH (22:27)
--- NOTE | 2019-10-15 22:51 | PM.IMHP ---
H&P: HPI History of Present Illness Date/Time: 10/15/19 22:51 Chief complaint: chest pain, copd exacerbation Narrative: This is an unfortunate 63 year old male with known history of chronic respiratory failure on home oxygen and COPD who was just discharged home from our Hospitalist service two days ago after being treated for an acute COPD exacerbation and now returned with worsening shortness of breath. The patient also complains of midsternal chest discomfort which he believes is secondary to his ongoing poorly productive cough. He denies any fever or chills. He reports increased lower extremity swelling over the past 2 days. The patient was evaluated in the ER tonight and given bronchodilators as well as IV lasix therapy. Routine labs demonstrated an elevated troponin. ER provider has consulted Cardiology and we have been asked to readmit the patient back to the hospital for his ongoing COPD exacerbation, fluid overloaded state and chest pain. He denies any other symptoms. 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 Social History Social History Social History: The patient was once for 5 years and . He has no children. He was heavy drinker up until 1986 when he went to rehab. he stated that he smoked of the 5 packs of cigarettes a day after he quit drinking. He then cut down to 2 and half packs of cigarettes. He tried quitting several times but it was not until 2007 that he quit for good. He denied any marijuana or illicit drug use. He does not have a durable power regulatory attorney for healthcare. And he desires to be a DNR. He lives with his mother and takes care of her she has end-stage dementia. He is considered disabled. Smoking packs per day: 2.5 Smoking cigarettes per day: 50.0 Years smoked: 35 Smoking pack-years: 87.50 Smoking status: Former smoker Tobacco type: cigarettes Second hand tobacco smoke exposure: No Smoking end date: 03/12/07 Alcohol intake: former Substance use: never Substance use type: marijuana Last use: 40 years ago Gender identity (if verbalized by the patient): Male Spiritual care concerns: No Meds Home Medications and Allergies Home Medications Medication Instructions Recorded Confirmed Type citalopram 20 mg tablet 40 mg PO DAILY 02/26/19 10/16/19 History omeprazole 40 mg capsule,delayed 40 mg PO DAILY 02/26/19 10/16/19 History release oxybutynin chloride 10 mg 10 mg PO DAILY 02/26/19 10/16/19 History tablet,extended release 24 hr simvastatin 20 mg tablet 20 mg PO DAILY 02/26/19 10/16/19 History budesonide-formoterol HFA 160 2 puff INHALATION Q12H 02/27/19 10/16/19 History mcg-4.5 mcg/actuation aerosol inhaler ipratropium bromide 0.02 % 2.5 ml INHALATION Q6H PRN #150 ml 02/27/19 10/16/19 Rx solution for inhalation ropinirole 1 mg tablet 1 mg PO HS 02/27/19 10/16/19 History temazepam 15 mg capsule 15 mg PO .QHS PRN #30 cap 07/11/19 10/16/19 Rx ipratropium bromide 0.03 % nasal 2 spray NASAL BID 07/14/19 10/16/19 History spray albuterol sulfate 90 mcg/actuation 1 inhalation INHALATION Q4-6H PRN 10/01/19 10/16/19 Rx aerosol inhaler #8.5 gm prednisone See Rx Instr
--- NOTE | 2019-10-15 23:09 | PC.NURSE ---
report to carter
[2019-10-16] VITALS (37 sets, daily range): BP systolic 92–154; BP diastolic 69–96; PULSE 79–111; RESP 14–22; TEMP 36.3–37.3; O2SAT 91–99
--- NOTE | 2019-10-16 | ECHOL_ITS ---
Patient Info Name: Terrence Dugan Age: 63 years : 1955 Gender: Male Ht: 67 in Wt: 124 lbs BSA: 1.62 m2 HR: 80 bpm BP: 143 / 90 mmHg Technical Quality: Poor Exam Date: 10/16/2019 1:22 PM Exam Location: [facility] Patient Status: Outpatient Admit Date: 10/15/2019 Staff Ordering Physician: Celso Centeno MD Director Credit Risk: Alessandra Hernadez RDCS Attending Provider: Celso Centeno MD Referring Physician: Jacobo ALLEN; Exam Type: CA echo limited Study Info Indications I50.9 - Heart failure, unspecified Limited two-dimensional transthoracic echocardiogram is performed. Reason for Poor Study: poor echocardiographic windows Summary 1. Left ventricular systolic function is normal, estimated at >70%. 2. Right ventricular chamber dimension is mildly enlarged. 3. There is moderate tricuspid valve regurgitation. 4. Moderate pulmonary hypertension, estimated pulmonary arterial systolic pressure is 61 mmHg. Left Ventricle Left ventricular chamber dimension is normal. Left ventricular systolic function is normal, estimated at >70%. There is no increased left ventricular wall thickness. Left ventricular septal wall motion is normal. The left ventricular diastolic function is normal. Right Ventricle Right ventricular chamber dimension is mildly enlarged. Right ventricular systolic function is normal. Left Atria Left atrial chamber dimension is mildly enlarged. Right Atria Right atrial chamber dimension is mildly enlarged. Aortic Valve The aortic valve is trileaflet. There is no aortic valve sclerosis. There is no aortic valve stenosis. There is no aortic valve regurgitation. Pulmonic Valve The pulmonic valve is normal. There is no pulmonic valve stenosis. There is no pulmonic regurgitation. Mitral Valve The mitral valve has normal leaflets. There is no mitral valve stenosis. There is no mitral valve regurgitation. Tricuspid Valve The tricuspid valve leaflets are normal. There is no significant tricuspid valve stenosis. There is moderate tricuspid valve regurgitation. Moderate pulmonary hypertension, estimated pulmonary arterial systolic pressure is 61 mmHg. Pericardium/Pleural The pericardium appears normal. There is no pericardial effusion. Inferior Vena Cava Normal inferior vena cava with >50% collapse upon inspiration consistent with elevated right atrial pressure, 10 mmHg. Aorta The aortic root size at the sinus of Valsalva is normal. The prox ascending aorta size is normal. Left Ventricular Outflow Tract Name Value Normal LVOT 2D LVOT Diameter 1.9 cm Pulmonic Valve Name Value Normal RVOT Doppler RVOT Peak Gradient 5 mmHg PV Doppler PV Peak Gradient 10 mmHg Tricuspid Valve Name
--- NOTE | 2019-10-16 | PC.NURSE ---
This patient, Terrence Dugan, was admitted to IMU Room 213-01 on 10/15/19 at 2324. Patient/family oriented to hospital policies and general routines including ID bracelet, bed and alarms, visiting hours, pain management, procedures, bathroom and other care routines, personal items, smoking policy, room service/diet, and visiting hours. Valuables list has been completed. Information on how to activate the Rapid Response Team has been discussed. Patient/Family are encouraged to report perceived risks to care and to ask questions if they do not understand what they are told or what they should do.
[2019-10-16 01:40] LABS: Troponin I 0.203 ng/mL (0.000-0.034)
[2019-10-16] MEDS: methylPREDNISolone SOD SUCC 125 MG VIAL 60 MG IV PUSH ×5 (01:53→23:01)
[2019-10-16] MEDS: TEMAZEPAM 15 MG CAPSULE PO ×2 (01:53→23:01)
[2019-10-16] MEDS: ALBUTEROL SULFATE NEB 2.5 MG/0.5 ML INH 5 MG INHALATION ×3 (02:41→19:56)
[2019-10-16] MEDS: IPRATROPIUM BR 0.02% INH SOLN 0.5 MG/2.5 ML VIAL INHALATION ×3 (02:41→19:56)
[2019-10-16 02:47] LABS: Basophils Percent Auto 0.2 % (0.2-1.2); Eosinophils Absolute Auto 0.1 K/mm3 (0-0.3); Eosinophils Percent Auto 0.5 % (0-4.4); Hematocrit 47.1 % (42.0-52.0); Hemoglobin 15.8 g/dL (14.0-18.0); Immature Granulocyte Percent A 0.6 % (0-0.5); Lymphocytes Absolute Auto 1.67 K/mm3 (0.9-3.2); Lymphocytes Percent Auto 9.8 % (18.3-44.2); Mean Corpuscular HGB Conc 33.5 g/dl (32-36); Mean Corpuscular Hemoglobin 32.2 pg (26-34); Mean Corpuscular Volume 95.9 fl (80-100); Mean Platelet Volume 9.7 fl (7.4-10.4); Monocytes Absolute Auto 1.7 K/mm3 (0.1-0.6); Neutrophils Absolute Auto 13.5 K/mm3 (1.3-6.7); Neutrophils Percent Auto 78.9 % (45.5-73.1); Platelet Count Result 321 k/mm3 (150-375); Red Blood Count 4.91 M/mm3 (4.6-6.20); Red Cell Distribution Width 11.3 % (11.5-14.5); White Blood Count 17.1 K/mm3 (4.5-10.0)
[2019-10-16 03:01] LABS: Anion Gap 8.7 mmol/L (7-16); Blood Urea Nitrogen 25 mg/dL (9-20); Carbon Dioxide 37 mmol/L (22-30); Chloride 91 mmol/L (98-107); Cholesterol 177 mg/dL (0-200); Estimated CRCL calculation 62 ml/min; Estimated Glomerular Filt Rate > 60; Glucose 98 mg/dL (75-110); HDL Direct 55 mg/dL; Potassium 3.7 mmol/L (3.4-5.0); Sodium 133 mmol/L (137-145); Triglycerides 142 mg/dL (<150)
[2019-10-16 03:12] LABS: LDL Cholesterol Direct 94 mg/dL
[2019-10-16 03:16] LABS: Troponin I 0.185 ng/mL (0.000-0.034)
--- NOTE | 2019-10-16 08:56 | PM.CNCAR ---
Assessment and Plan Assessment and plan (1) Non-ST elevation myocardial infarction (NSTEMI): Code(s): I21.4 - Non-ST elevation (NSTEMI) myocardial infarction Status: Acute (2) Hypertension: Qualifiers: Hypertension type: unspecified Qualified Code(s): I10 - Essential (primary) hypertension Code(s): I10 - Essential (primary) hypertension Status: Chronic Assessment and Plan: Patient is a 63-year-old white man with history of severe emphysema and COPD with chronic respiratory failure on home oxygen, hypertension, hyperlipidemia, distant history of alcohol abuse, former tobacco dependence ( 90 pack year), depression, anxiety, who was seen in cardiac consultation for non ST elevation myocardial infarction. - he has non ST elevation myocardial infarction with peak troponin I of 0.225 occurring in the setting of recurrent COPD exacerbation and acute congestive heart failure. - he has atypical chest pain with coughing, currently resolved. - EKG without evidence of acute injury. - Blood pressure mildly elevated to well controlled this admission. - Continue aspirin and statin. - began intravenous heparin for 24 hours. - obtain echo to evaluate cardiac structure and function. - Given his presentations with recurrent dyspnea, elevated troponin I, extensive tobacco history, and multiple cardiac risk factors, will proceed with left heart catheterization for definitive evaluation for coronary artery disease 10/16/[address] Emory Pendleton. Patient reports that he is able to lie flat and notes urinary retention, possibly requiring urinary catheter prior to cardiac catheterization. (3) Acute exacerbation of chronic obstructive pulmonary disease: Code(s): J44.1 - Chronic obstructive pulmonary disease with (acute) exacerbation Status: Acute Assessment and Plan: - Management of COPD exacerbation as per primary service. (4) Hyperlipidemia: Qualifiers: Hyperlipidemia type: unspecified Qualified Code(s): E78.5 - Hyperlipidemia, unspecified Code(s): E78.5 - Hyperlipidemia, unspecified Status: Chronic Assessment and Plan: - Given LDL [address] myocardial infarction, increased his statin to atorvastatin 40 mg nightly. (5) CHF (congestive heart failure): Qualifiers: Heart failure chronicity: unspecified Heart failure type: unspecified Qualified Code(s): I50.9 - Heart failure, unspecified Code(s): I50.9 - Heart failure, unspecified Status: Acute Assessment and Plan: - He has acute congestive heart failure with probable right heart failure in the setting of his severe emphysema, with associated non-ST elevation myocardial infarction and COPD exacerbation. - obtain echo to evaluate cardiac structure and function. - continue diuresis with Lasix intravenously, with careful monitoring of renal function and electrolytes. History of Present Illness History of Present Illness Consult date/time: 10/16/19 08:56 Patient is a 63-year-old white man with history of severe emphysema and COPD with chronic respiratory failure on home oxygen, hypertension, hyperlipidemia, distant history of alcohol abuse, former tobacco dependence ( 90 pack year), depression, anxiety, who was seen in cardiac consultation for non ST elevation myocardial infarction. Patient was recently admitted for COPD exacerbation after swallowing a pill which went down his airway. He was readmitted this admission for worsening dyspnea and also complained of generalized chest discomfort but only with coughing. He reported increased bilateral lower extremity edema for 2 days. He denied fevers or chills. He received IV Lasix and bronchodilator therapy and laboratory testing revealed elevated troponin 0.225, then 0.203, then 0.[address] elevation myocardial infarction. The patient denies orthopnea or paroxysmal nocturnal dyspnea. He reports oc
[2019-10-16] MEDS: CITALOPRAM HYDROBROMIDE 20 MG TABLET 40 MG PO (09:16)
[2019-10-16] MEDS: FUROSEMIDE INJ 40 MG/4 ML VIAL IV PUSH (09:16)
[2019-10-16] MEDS: SIMVASTATIN 20 MG TABLET PO (09:16)
[2019-10-16] MEDS: ASPIRIN 81 MG ENTERIC TABLET PO (09:16)
[2019-10-16] MEDS: PANTOPRAZOLE 40 MG TABLET PO (09:16)
[2019-10-16 11:11] LABS: Basophils Percent Auto 0.1 % (0.2-1.2); Hematocrit 48.8 % (42.0-52.0); Hemoglobin 16.8 g/dL (14.0-18.0); Immature Granulocyte Absolute 0.07 K/mm3 (0.00-0.031); Immature Granulocyte Percent A 0.7 % (0-0.5); Lymphocytes Absolute Auto 0.25 K/mm3 (0.9-3.2); Lymphocytes Percent Auto 2.3 % (18.3-44.2); Mean Corpuscular HGB Conc 34.4 g/dl (32-36); Mean Corpuscular Hemoglobin 32.6 pg (26-34); Mean Corpuscular Volume 94.8 fl (80-100); Monocytes Absolute Auto 0.2 K/mm3 (0.1-0.6); Monocytes Percent Auto 1.9 % (2.6-8.5); Neutrophils Absolute Auto 10.2 K/mm3 (1.3-6.7); Platelet Count Result 354 k/mm3 (150-375); Red Blood Count 5.15 M/mm3 (4.6-6.20); Red Cell Distribution Width 11.2 % (11.5-14.5); White Blood Count 10.8 K/mm3 (4.5-10.0)
[2019-10-16 11:24] LABS: INR 1.1; Prothrombin Time 13.4 Seconds (11.1-14.7)
[2019-10-16 11:25] LABS: Partial Thromboplastin Time 23.4 SECONDS (22.3-36.8)
[2019-10-16] MEDS: TAMSULOSIN HCL 0.4 MG CAPSULE PO (12:18)
[2019-10-16 12:37] LABS: Add Urine Microscopic? YES; Appearance Urine Clear (Clear); Bacteria Urine Trace /hpf; Bilirubin Urine Negative (Negative); Blood Urine 1+ (Negative); Color Urine Straw (Yellow); Glucose Urine UA Negative (Negative); Ketones Urine Trace mg/dL (Negative); Leukocyte Esterase Ur Negative LEU/UL (Negative); Mucus Urine Rare /lpf; Nitrate Urine Negative (Negative); Protein Urine Negative (Negative); Urobilinogen Urine Negative mg/dL (<2.0); WBC Urine 0-3 /hpf
--- NOTE | 2019-10-16 14:46 | WPDMODSED ---
Moderate Sedation Note-Pt Data Patient Data Allergies Allergy/AdvReac Type Severity Reaction Status Date / Time No Known Allergies Allergy Unknown Verified 10/15/19 19:35 Home Medications Medication Instructions Recorded Confirmed Type citalopram 20 mg tablet 40 mg PO DAILY 02/26/19 10/16/19 History omeprazole 40 mg capsule,delayed 40 mg PO DAILY 02/26/19 10/16/19 History release oxybutynin chloride 10 mg 10 mg PO DAILY 02/26/19 10/16/19 History tablet,extended release 24 hr simvastatin 20 mg tablet 20 mg PO DAILY 02/26/19 10/16/19 History budesonide-formoterol HFA 160 2 puff INHALATION Q12H 02/27/19 10/16/19 History mcg-4.5 mcg/actuation aerosol inhaler ipratropium bromide 0.02 % 2.5 ml INHALATION Q6H PRN #150 ml 02/27/19 10/16/19 Rx solution for inhalation ropinirole 1 mg tablet 1 mg PO HS 02/27/19 10/16/19 History temazepam 15 mg capsule 15 mg PO .QHS PRN #30 cap 07/11/19 10/16/19 Rx ipratropium bromide 0.03 % nasal 2 spray NASAL BID 07/14/19 10/16/19 History spray albuterol sulfate 90 mcg/actuation 1 inhalation INHALATION Q4-6H PRN 10/01/19 10/16/19 Rx aerosol inhaler #8.5 gm prednisone See Rx Instructions .ROUTE 10/13/19 10/16/19 Rx .COMPLEX #21 tablet ipratropium-albuterol 3 ml INHALATION Q6H PRN 10/16/19 10/16/19 History Current Medications: Active Medications Acetaminophen (Tylenol Tablet) 650 mg PO Q4H PRN PRN Reason: Mild Pain (1-3) or Fever Albuterol (Albuterol Sulf Neb 2.5mg/0.5ml) 5 mg INHALATION Q6HRT [facility] Last Admin: 10/16/19 07:39 Dose: 5 mg Documented by: Aspirin (Aspirin Ec) 81 mg PO QAM [facility] Last Admin: 10/16/19 09:16 Dose: 81 mg Documented by: Atorvastatin Calcium (Lipitor) 40 mg PO HS [facility] Budesonide (Pulmicort Respule Neb) 0.5 mg INHALATION Q12HRT [facility] Citalopram Hydrobromide (Celexa) 40 mg PO DAILY [facility] Last Admin: 10/16/19 09:16 Dose: 40 mg Documented by: Furosemide (Lasix Inj) 40 mg IV PUSH DAILY [facility] Last Admin: 10/16/19 09:16 Dose: 40 mg Documented by: Heparin Sodium (Porcine) (Heparin Sodium) 4,000 units IV PUSH PRN PRN PRN Reason: aPTT less than 55 seconds Heparin Sodium (Porcine) (Heparin Sodium) 2,000 units IV PUSH PRN PRN PRN Reason: aPTT 55 - 70 seconds Heparin Sodium/Dextrose (Heparin Sodium/D5w 100 Units/Ml) 25,000 units in 250 mls @ 6 mls/hr IV CONT .Q24H EARLINE; Protocol Sodium Chloride (Normal Saline Iv) 500 mls @ 30 mls/hr IV CONT .[id number] [facility] Ipratropium [place] (Atrovent Neb) 0.5 mg INHALATION Q6HRT [facility] Last Admin: 10/16/19 07:39 Dose: 0.5 mg Documented by: Methylprednisolone Sodium Succinate (Solu-Medrol) 60 mg IV PUSH Q6HR [facility] Last Admin: 10/16/19 12:18 Dose: 60 mg Documented by: Oxybutynin Chloride (Ditropan Xl) 10 mg PO DAILY [facility] Last Admin: 10/16/19 09:16 Dose: 10 mg Documented by: Pantoprazole Sodium (Protonix) 40 mg PO QAM [facility] Last Admin: 10/16/19 09:16 Dose: 40 mg Documented by: Ropinirole HCl (Requip) 1 mg PO HS [facility] Tamsulosin HCl (Flomax) 0.4 mg PO QAM [facility] Temazepam (Restoril) 15 mg PO HS PRN PRN Reason: insomnia Last Admin: 10/16/19 01:53 Dose: 15 mg Documented by: Sedation/Anesthesia: No previous sedation/anesthesia problems (including family history). 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 Social History Social History Social Hist
--- NOTE | 2019-10-16 14:47 | P.PCNCC_ITS ---
Cardiac Cath Procedure Note Date of procedure:: 10/16/19 Performing physician:: Emory Pendleton MD Procedure: 1. Left heart catheterization, selective coronary angiogram. 2. Left ventricular angiogram. 3. Conscious sedation. Driller And Broacher: Dr. Emory Pendleton Complications: None. Sedation: Conscious sedation, local anesthesia, using 0.5 mg of Versed said, 12.5 mcg of fentanyl, and using 1% lidocaine for local anesthesia. Starting time is 2:15 a.m. ending time is 2:45 a.m. Indication: Non ST-elevation myocardial infarction. History: 63-year-old gentleman with history of hypertension history of smoking history of COPD can last because of shortness of breath and chest pain noted to have elevated troponin indicative of non ST elevation myocardial infarction, brought to the record label intern for elective cardiac catheterization for definitive diagnosis of coronary disease Technique: After informed consent was obtained from patient, was brought to the record label intern, put in the record label intern table, prepped and draped in usual sterile fashion. Five Samoan sheath was inserted into the right common femoral artery, through the sheath 5 Samoan JL4 catheter inserted, advanced to the left coronary artery, left coronary artery angiogram was obtained. The catheter was exchanged over guidewire into a 5 Samoan JR4 catheter, advanced to the right coronary artery, right coronary artery angiogram was obtained. The catheter then was exchanged over guidewire into this 5 Samoan pigtail catheter, advanced to left ventricle, left ventricular angiogram was obtained. The catheter then was pulled, the sheath was pulled applying manual pressure for arterial hemostasis. Patient tolerated the procedure no complication, taken from the record label intern to his room in stable condition stable vital signs. Hemodynamics: aortic pressure 94/60 . LV pressure 98/00 with LVEDP of 24 mmHg Angiographic findings: Left main: Medium size artery showed ostial 25% disease Lad medium size artery showed no significant disease or stenosis Left circumflex artery, medium size artery, no significant disease or stenosis. RCA: Dominant vessel, showed no significant disease or stenosis LV: Normal size left ventricle with normal left ventricular systolic function. noted very vertical heart, likely is due to hyperinflated lungs. Summary: Mild coronary artery disease, normal left ventricular systolic function. Recommendation: Maximum medical treatment. Risk factor modification.
--- NOTE | 2019-10-16 14:50 | SUR.PHASEII ---
BEGIN PHASE II RECOVERY S/P [facility] W/ DR. BEACH. RETURNED TO SPRAY MACHINE OPERATOR 4 VIA STRETCHER. 5FR SHEATH INTACT R. GROIN. SITE WITHOUT BLEEDING OR HEMATOMA. DRESSING D/I. PLACED ON MONITOR. DENIES PAIN OR SOB. PLACED ON 3L NC. CARLTON CATHETER DRAINING CLEAR YELLOW URINE. IVF'S RUNNING ORDERED. REVIEWED BEDREST ACTIVITY RESTRICTIONS POST CATH. VOICED UNDERSTANDING. WILL CONTINUE TO MONITOR. VSS.
--- NOTE | 2019-10-16 15:38 | SUR.PHASEII ---
MANUAL 5FR SHEATH PULL R. GROIN BY SAHARA ODELL RN PER PROTOCOL. FIRM STEADY PRESSURE HELD TO SITE TO ACHIEVE HEMOSTASIS OF PUNCTURE. TOLERATING WELL. VSS. WILL CONTINUE TO MONITOR.
--- NOTE | 2019-10-16 16:03 | SUR.PHASEII ---
HEMOSTASIS ACHIEVED TO R. GROIN PUNCTURE SITE AFTER 25 MINUTES FIRM, STEADY MANUAL PRESSURE HELD TO SITE BY SAHARA Thomson RN. TOLERATED WELL. SITE DRESSED W/ STAT SEAL AND TEGADERM. AGAIN REVIEWED BEDREST ACTIVITY RESTRICTIONS. VOICED UNDERSTANDING. VSS. WILL MONITOR.
--- NOTE | 2019-10-16 16:14 | PM.IMPN ---
Progress Note: A&P Assessment and Plan (1) Acute dyspnea: Code(s): R06.00 - Dyspnea, unspecified Status: Acute Assessment and Plan: Appears to be secondary to ongoing COPD exacerbation r/o acute CHF exacerbation as well. Continue treatment for COPD as well as Lasix IV. Echocardiogram. TSH w/ reflex T4. 10/16/19 16:14 patient is 69-year-old male with history of and history and states COPD with chronic respiratory failure on home oxygen patient was just discharged 2 days ago after being treated for exacerbation of COPD patient states upon arrival at home he was still having cough shortness o breath was progressive getting worse and developed the chest pain, lower extremity swelling, patient presented emergency department for further evaluation, his tropes were elevated, patient was started on updraft, Solu-Medrol, and Lasix for lower extremity edema, patient was seen by small lot operator today and had a cardiac catheterization which was essentially normal without significant coronary artery disease, and patient has normal LV function, recommending maximum medical management will continue to monitor and further recommendation to follow. (2) Chest pain: Qualifiers: Chest pain type: unspecified Qualified Code(s): R07.9 - Chest pain, unspecified Code(s): R07.9 - Chest pain, unspecified Status: Acute Assessment and Plan: Likely secondary to coughing. r/o ACS. Trend troponin. telemetry. Cardiology has been consulted by ER provider. (3) Acute exacerbation of chronic obstructive airways disease: Code(s): J44.1 - Chronic obstructive pulmonary disease with (acute) exacerbation Status: Acute Assessment and Plan: Continue bronchodilators and steroid therapy. (4) Chronic respiratory failure with hypoxia: Code(s): J96.11 - Chronic respiratory failure with hypoxia Status: Chronic Assessment and Plan: Continue oxygen supplementation. (5) Hyperlipidemia: Qualifiers: Hyperlipidemia type: unspecified Qualified Code(s): E78.5 - Hyperlipidemia, unspecified Code(s): E78.5 - Hyperlipidemia, unspecified Status: Chronic Assessment and Plan: Continue simvastatin PO. Subjective Date/time seen: 10/16/19 16:14 patient is 69-year-old male with history of and history and states COPD with chronic respiratory failure on home oxygen patient was just discharged 2 days ago after being treated for exacerbation of COPD patient states upon arrival at home he was still having cough shortness o breath was progressive getting worse and developed the chest pain, lower extremity swelling, patient presented emergency department for further evaluation, his tropes were elevated, patient was started on updraft, Solu-Medrol, and Lasix for lower extremity edema, patient was seen by small lot operator today and had a cardiac catheterization which was essentially normal without significant coronary artery disease, and patient has normal LV function, recommending maximum medical management will continue to monitor and further recommendation to follow. Review of Systems Review of Systems: All systems reviewed & are unremarkable except as noted in HPI and below Exam Narrative: Exam Narrative: patient appears chronically older than his age Const: General: no acute distress and uncomfortable HENMT: General nose exam: Normal nares present Mouth: Yes moist mucous membranes Eyes: Sclera: sclerae normal Neck: Other: minimal retraction Resp: Other: bilateral poor air entry with rales and rhonchi Cardio: Rate: regular rate Rhythm: regular rhythm GI: Auscultation: normal bowel sounds Skin: General skin exam: normal color Neuro: Speech: normal speech Sensory Exam: normal sensation Extrem: General: normal to inspection Psych: Affect: Anxious affect present Objective Data Vital Signs Vital Signs: Vital Signs - 24 hr 10/15/19 16:26 08
--- NOTE | 2019-10-16 17:15 | SUR.PHASEII ---
END PHASE II RECOVERY. REPORT CALLED TO EDGARD ESCALONA IN IMU. PT. RETURNED TO IMU 213 VIA BED ON TELE MONITOR. VSS. NO CHANGE IN R. GROIN STATUS. VOICES NO C/O.
[2019-10-16] MEDS: SODIUM CHLORIDE 0.9% IV 1,000 ML 125 ML IV CONT (17:35)
[2019-10-16] MEDS: BUDESONIDE RESPULE NEB 0.5 MG/2 ML AMP INHALATION (19:56)
[2019-10-16] MEDS: ATORVASTATIN 40 MG TABLET PO (20:17)
[2019-10-16] MEDS: rOPINIRole HCL 1 MG TABLET PO (20:17)
[2019-10-17] VITALS (19 sets, daily range): BP systolic 92–140; BP diastolic 63–76; PULSE 65–99; RESP 18–26; TEMP 36.1–37.1; O2SAT 92–100; BMI 18.8
[2019-10-17] MEDS: IPRATROPIUM BR 0.02% INH SOLN 0.5 MG/2.5 ML VIAL INHALATION ×4 (02:10→21:30)
[2019-10-17] MEDS: ALBUTEROL SULFATE NEB 2.5 MG/0.5 ML INH 5 MG INHALATION ×4 (02:10→21:29)
[2019-10-17 04:50] LABS: Basophils Percent Auto 0.1 % (0.2-1.2); Hematocrit 40.9 % (42.0-52.0); Hemoglobin 13.9 g/dL (14.0-18.0); Immature Granulocyte Absolute 0.08 K/mm3 (0.00-0.031); Immature Granulocyte Percent A 0.5 % (0-0.5); Lymphocytes Absolute Auto 0.49 K/mm3 (0.9-3.2); Lymphocytes Percent Auto 3.3 % (18.3-44.2); Mean Corpuscular Hemoglobin 32.5 pg (26-34); Mean Corpuscular Volume 95.6 fl (80-100); Mean Platelet Volume 9.9 fl (7.4-10.4); Monocytes Absolute Auto 1.3 K/mm3 (0.1-0.6); Monocytes Percent Auto 9.1 % (2.6-8.5); Neutrophils Absolute Auto 12.8 K/mm3 (1.3-6.7); Platelet Count Result 285 k/mm3 (150-375); Red Blood Count 4.28 M/mm3 (4.6-6.20); Red Cell Distribution Width 11.3 % (11.5-14.5); White Blood Count 14.8 K/mm3 (4.5-10.0)
[2019-10-17] MEDS: methylPREDNISolone SOD SUCC 125 MG VIAL 60 MG IV PUSH ×4 (05:11→23:51)
[2019-10-17 05:28] LABS: Anion Gap 8.8 mmol/L (7-16); Blood Urea Nitrogen 36 mg/dL (9-20); Calcium 8.5 mg/dL (8.4-10.2); Carbon Dioxide 34 mmol/L (22-30); Chloride 94 mmol/L (98-107); Estimated CRCL calculation 71 ml/min; Estimated Glomerular Filt Rate > 60; Glucose 135 mg/dL (75-110); Magnesium 2.1 mg/dL (1.6-2.3); Potassium 3.8 mmol/L (3.4-5.0); Sodium 133 mmol/L (137-145)
[2019-10-17] MEDS: BUDESONIDE RESPULE NEB 0.5 MG/2 ML AMP INHALATION ×2 (08:04→21:30)
[2019-10-17] MEDS: FUROSEMIDE INJ 40 MG/4 ML VIAL IV PUSH (09:31)
[2019-10-17] MEDS: ASPIRIN 81 MG ENTERIC TABLET PO (09:31)
[2019-10-17] MEDS: CITALOPRAM HYDROBROMIDE 20 MG TABLET 40 MG PO (09:31)
[2019-10-17] MEDS: TAMSULOSIN HCL 0.4 MG CAPSULE PO (09:32)
[2019-10-17] MEDS: PANTOPRAZOLE 40 MG TABLET PO (09:32)
--- NOTE | 2019-10-17 14:06 | PM.PNCARD ---
Progress Note: A&P Assessment and Plan (1) Non-ST elevation myocardial infarction (NSTEMI): Code(s): I21.4 - Non-ST elevation (NSTEMI) myocardial infarction Status: Acute Assessment and Plan: Pt remains asymptomatic cath showed only mild CAD ECHO showed hyperdynamic LV systolic function (lvef > 70%) CONT MEDICAL MANAGEMENT AND RISK FACTOR MODIFICATION (2) Acute exacerbation of chronic obstructive pulmonary disease: Code(s): J44.1 - Chronic obstructive pulmonary disease with (acute) exacerbation Status: Acute Assessment and Plan: Pt does have mild pulmonary HTN probably due to his COPD management per PC and pulmonary (3) Hypertension: Qualifiers: Hypertension type: unspecified Qualified Code(s): I10 - Essential (primary) hypertension Code(s): I10 - Essential (primary) hypertension Status: Chronic Assessment and Plan: well controlled cont meds Pt appears stable from cardiac standpoint. In case of dc fu with Dr. Arguelles in one week. Subjective Date/time seen: 10/17/19 14:06 Pt feels fine today. Compains only with urination problem per his nurse. No urology evaluation. Pt was seen and examined, chart was reviewed, case d/w pt's nurse. Review of Systems Review of Systems: All systems reviewed & are unremarkable except as noted in HPI and below Constitutional: Constitutional: Reports as per HPI Eyes: Eyes: Reports as per HPI ENT: Reports system reviewed and no additional complaints, except as documented and Reports as per HPI Cardiovascular: Cardiovascular: Reports as per HPI Respiratory: Respiratory: Reports as per HPI Gastrointestinal: Gastrointestinal: Reports as per HPI Genitourinary: Genitourinary: Reports as per HPI Musculoskeletal: Musculoskeletal: Reports as per HPI Exam Const: General: no acute distress Nutritional Appearance: well nourished Orientation/consciousness: patient oriented x3 HENMT: Head: normal to inspection and atraumatic Ears: hearing grossly normal bilaterally Face and sinus: normal facial exam Eyes: General: appearance normal, both eyes and all related structures Pupils: Equal, round and reactive pupils present EOM: EOMs intact bilaterally Neck: Neck: supple Chest: Chest palpation & inspection: normal inspection of the chest Resp: Effort & Inspection: normal respiratory effort and no respiratory distress Auscultation: clear to auscultation bilaterally Cardio: Jugular venous distension: no JVD Rate: regular rate Heart sounds: S1 normal heart sound present, S2 normal heart sound present and no murmurs Peripheral pulses: Peripheral pulses 2+ throughout GI: GI Palp: No abdominal tenderness Auscultation: normal bowel sounds Skin: General skin exam: normal color Neuro: General: patient oriented x3 Cranial nerves: Yes Equal, round and reactive pupils present Extrem: General: normal to inspection and no clubbing, cyanosis or edema Objective Data Vital Signs Vital Signs: Vital Signs - 24 hr 10/16/19 15:00 10/16/19 15:15 10/16/19 15:30 Temperature 36.9 C Pulse Rate 91 107 H 89 Respiratory Rate 18 18 16 Blood Pressure 130/79 111/77 110/77 Pulse Oximetry 94 95 92 10/16/19 15:40 10/16/19 15:50 10/16/19 16:05 Temperature Pulse Rate 95 92 82 Respiratory Rate 16 16 16 Blood Pressure 113/80 122/85 108/77 Pulse Oximetry 96 96 99 10/16/19 16:20 10/16/19 16:35 10/16/19 16:50 Temperature Pulse Rate 79 83 79 Respiratory Rate 14 14 14 Blood Pressure 94/78 L 105/72 101/71 Pulse Oximetry 98 98 99 10/16/19 17:05 10/16/19 17:35 10/16/19 18:00 Temperature 37.1 C Pulse Rate 81 79 101 H Respiratory Rate 14 20 Blood Pressure 92/69 L 110/84 Pulse Oximetry 98 98 10/16/19 18:05 10/16/19 19:05 10/16/19 19:41 Temperature 37.1 C 37.3 C 37.2 C Pulse Rate 81 101 H 88 Respiratory Rate 18 20 18 Blood Pressure 107/81 118/78 128/77 Pulse Oximetry 98 97 95 10/16/19 19:57 [id number]
--- NOTE | 2019-10-17 14:35 | PCNSR ---
On 10/17/19, the student, [Deyvi Anderson], provided care and completed [facility] on [facility]. I have reviewed the student's documentation and agree with the findings.
--- NOTE | 2019-10-17 16:30 | WPDURCON ---
Assessment and Plan Assessment and plan (1) Urinary retention: Code(s): R33.9 - Retention of urine, unspecified Status: Acute Assessment and Plan: Keep arango in until discharge, please perform voiding trial. If unable to urinate, re-place arango and follow up in the office for further evalaution. (2) BPH (benign prostatic hyperplasia): Code(s): N40.0 - Benign prostatic hyperplasia without lower urinary tract symptoms Status: Acute Assessment and Plan: Continue Tamsulosin and add Finasteride daily. Stop Oxybutynin as it is likely contributing to retention. Urology Consult Note HPI Date Seen: 10/17/19 Requesting Physician: Celso Centeno MD Primary Care Provider: Bari Kennedy, Consult Narrative Narrative: Terrence Dugan is a 63 year old male who presented to the ER on 10/10/2019 for SOB. He has a history of end stage COPD. He recently aspirated his medication which caused his SOB to be worse. While here in the hospital he experienced a non STEMI yesterday on 10/16/2019 and had a cardiac cath as a result of that. We were consulted d/t urinary retention that initially developed on Sunday. He was straight catheterized and 1100cc of urine was removed. He continued to have symptoms of urgency, frequency, hesitancy and straining to urinate. A catheter was then placed with difficulty getting around his prostate. He denies hematuria, dysuria, fever or chills, flank pain or abdominal pain. He has a history of OAB which has been treated with Oxybutynin for the past four years. His WBC is 14.8, creatinine is 0.70 and he has microhematuria on his UA, but it is likely d/t traumatic and numerous arango insertions recently as he has no symptoms of a UTI and urine is clear. He was started on Tamsulosin today. Review of Systems Cardiovascular: Cardiovascular: Denies chest pain, Denies leg edema and Reports dyspnea Respiratory: Respiratory: Reports dyspnea Gastrointestinal: Gastrointestinal: Denies abdominal pain, Denies nausea and Denies vomiting Genitourinary: Genitourinary: Denies hematuria, Denies dysuria, Denies flank pain, Reports urinary frequency, Reports urinary hesitancy and Reports urinary urgency [facility] Past Medical History Medical History Anxiety and depression Chronic respiratory failure with hypoxia he chronically wears 2-3 L at rest and 3-4 with exertion COPD, severe Former smoker Hip fracture requiring operative repair pinning History of alcohol abuse Hyperlipidemia Hypertension Surgical History Surgical History History of hip surgery pinnning Family History Family History Mother Dementia Father Electrocution 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 Social History Social History Social History: The patient was once for 5 years and . He has no children. He was heavy drinker up until 1986 when he went to rehab. he stated that he smoked of the 5 packs of cigarettes a day after he quit drinking. He then cut down to 2 and half packs of cigarettes. He tried quitting several times but it was not until 2007 that he quit for good. He denied any marijuana or illicit drug use. He does not have a durable power corporate attorney for healthcare. And he desires to be a DNR. He lives with his mother and takes care of her she has end-stage dementia. He is considered disabled. Smoking packs per day: 2.5 Smoking cigarettes per day: 50.0 Years smoked: 35 Smoking pack-years: 87.50 Smoking status: Former smoker Tobacco type: cigarettes Second hand tobacco smoke exposure: No Smoking end date: 03/12/07 Alcohol intake: former Substance use: never Substance use type: marijuana Last use: 40 years ago Gender identity (if ve
--- NOTE | 2019-10-17 17:06 | PM.IMPN ---
Progress Note: A&P Assessment and Plan (1) Acute dyspnea: Code(s): R06.00 - Dyspnea, unspecified Status: Acute Assessment and Plan: Appears to be secondary to ongoing COPD exacerbation r/o acute CHF exacerbation as well. Continue treatment for COPD as well as Lasix IV. Echocardiogram. TSH w/ reflex T4. 10/16/19 16:14 patient is 69-year-old male with history of and history and states COPD with chronic respiratory failure on home oxygen patient was just discharged 2 days ago after being treated for exacerbation of COPD patient states upon arrival at home he was still having cough shortness o breath was progressive getting worse and developed the chest pain, lower extremity swelling, patient presented emergency department for further evaluation, his tropes were elevated, patient was started on updraft, Solu-Medrol, and Lasix for lower extremity edema, patient was seen by data conversion analyst today and had a cardiac catheterization which was essentially normal without significant coronary artery disease, and patient has normal LV function, recommending maximum medical management will continue to monitor and further recommendation to follow. (2) Chest pain: Qualifiers: Chest pain type: unspecified Qualified Code(s): R07.9 - Chest pain, unspecified Code(s): R07.9 - Chest pain, unspecified Status: Acute Assessment and Plan: Likely secondary to coughing. r/o ACS. Trend troponin. telemetry. Cardiology has been consulted by ER provider. (3) Acute exacerbation of chronic obstructive airways disease: Code(s): J44.1 - Chronic obstructive pulmonary disease with (acute) exacerbation Status: Acute Assessment and Plan: Continue bronchodilators and steroid therapy. (4) Chronic respiratory failure with hypoxia: Code(s): J96.11 - Chronic respiratory failure with hypoxia Status: Chronic Assessment and Plan: Continue oxygen supplementation. (5) Hyperlipidemia: Qualifiers: Hyperlipidemia type: unspecified Qualified Code(s): E78.5 - Hyperlipidemia, unspecified Code(s): E78.5 - Hyperlipidemia, unspecified Status: Chronic Assessment and Plan: Continue simvastatin PO. Subjective Date/time seen: 10/17/19 17:06 patient is 69-year-old male with history of and history and states COPD with chronic respiratory failure on home oxygen patient was just discharged 2 days ago after being treated for exacerbation of COPD patient states upon arrival at home he was still having cough shortness o breath was progressive getting worse and developed the chest pain, lower extremity swelling, patient presented emergency department for further evaluation, his tropes were elevated, patient was started on updraft, Solu-Medrol, and Lasix for lower extremity edema, patient was seen by data conversion analyst today and had a cardiac catheterization which was essentially normal without significant coronary artery disease, and patient has normal LV function, recommending maximum medical management will continue to monitor and further recommendation to follow. will do discharge planning tomorrow Review of Systems Review of Systems: All systems reviewed & are unremarkable except as noted in HPI and below Exam Narrative: Exam Narrative: patient appears chronically ill older than his age Const: General: no acute distress and uncomfortable HENMT: General nose exam: Normal nares present Mouth: Yes moist mucous membranes Eyes: General: appearance normal, both eyes and all related structures Sclera: sclerae normal Neck: Neck: supple Resp: Other: bilateral poor air entry with rales and rhonchi Cardio: Rate: regular rate Rhythm: regular rhythm GI: Auscultation: normal bowel sounds Skin: General skin exam: normal color Neuro: Speech: normal speech Sensory Exam: normal sensation Extrem: General: normal to inspection Psych: Affect: Anxious affect pr
--- NOTE | 2019-10-17 18:30 | PC.NURSE ---
This patient, Terrence Dugan, was received from on 10/17/19 at 1830. Personal belongings list checked and signed. Patient/family oriented to unit policies and routines
[2019-10-17] MEDS: rOPINIRole HCL 1 MG TABLET PO (20:56)
[2019-10-17] MEDS: ATORVASTATIN 40 MG TABLET PO (20:56)
[2019-10-17] MEDS: TEMAZEPAM 15 MG CAPSULE PO (22:32)
[2019-10-18] VITALS (23 sets, daily range): BP systolic 111–133; BP diastolic 69–86; PULSE 78–118; RESP 16–24; TEMP 36.6–37.4; O2SAT 89–98
[2019-10-18] MEDS: IPRATROPIUM BR 0.02% INH SOLN 0.5 MG/2.5 ML VIAL INHALATION ×4 (03:03→18:57)
[2019-10-18] MEDS: ALBUTEROL SULFATE NEB 2.5 MG/0.5 ML INH 5 MG INHALATION ×4 (03:04→18:57)
[2019-10-18 05:32] LABS: Hematocrit 41.3 % (42.0-52.0); Mean Corpuscular HGB Conc 33.9 g/dl (32-36); Mean Corpuscular Volume 94.5 fl (80-100); Mean Platelet Volume 9.8 fl (7.4-10.4); Platelet Count Result 282 k/mm3 (150-375); Red Blood Count 4.37 M/mm3 (4.6-6.20); White Blood Count 18.6 K/mm3 (4.5-10.0)
[2019-10-18 05:49] LABS: Anion Gap 4 mmol/L (8-16); Blood Urea Nitrogen 32 mg/dL (9-20); Calcium 8.6 mg/dL (8.4-10.2); Carbon Dioxide 39 mmol/L (22-30); Chloride 89 mmol/L (98-107); Estimated CRCL calculation 72 ml/min; Estimated Glomerular Filt Rate > 60; Glucose 163 mg/dL (75-110); Sodium 132 mmol/L (137-145)
[2019-10-18] MEDS: methylPREDNISolone SOD SUCC 125 MG VIAL 60 MG IV PUSH ×4 (06:08→23:45)
[2019-10-18] MEDS: BUDESONIDE RESPULE NEB 0.5 MG/2 ML AMP INHALATION ×2 (08:50→18:58)
[2019-10-18] MEDS: FUROSEMIDE INJ 40 MG/4 ML VIAL IV PUSH ×2 (09:19→18:50)
[2019-10-18] MEDS: FINASTERIDE 5 MG TABLET PO (09:19)
[2019-10-18] MEDS: TAMSULOSIN HCL 0.4 MG CAPSULE PO (09:19)
[2019-10-18] MEDS: CITALOPRAM HYDROBROMIDE 20 MG TABLET 40 MG PO (09:19)
[2019-10-18] MEDS: PANTOPRAZOLE 40 MG TABLET PO (09:19)
[2019-10-18] MEDS: ASPIRIN 81 MG ENTERIC TABLET PO (09:19)
--- NOTE | 2019-10-18 10:54 | PM.IMPN ---
Progress Note: A&P Assessment and Plan (1) Acute dyspnea: Code(s): R06.00 - Dyspnea, unspecified Status: Acute Assessment and Plan: Appears to be secondary to ongoing COPD exacerbation r/o acute CHF exacerbation as well. Continue treatment for COPD as well as Lasix IV. Echocardiogram. TSH w/ reflex T4. 10/18/19 10:54 patient is 69-year-old male with history of and history and states COPD with chronic respiratory failure on home oxygen patient was just discharged 2 days ago after being treated for exacerbation of COPD patient states upon arrival at home he was still having cough shortness o breath was progressive getting worse and developed the chest pain, lower extremity swelling, patient presented emergency department for further evaluation, his tropes were elevated, patient was started on updraft, Solu-Medrol, and Lasix for lower extremity edema, patient was seen by construction operations manager today and had a cardiac catheterization which was essentially normal without significant coronary artery disease, and patient has normal LV function, recommending maximum medical management today patient still complains shortness of breath wet cough and congestion, unable to expotorate, will add Pulmozyme to help with congestion and this will help dry and improve his breathing. will continue to monitor (2) Chest pain: Qualifiers: Chest pain type: unspecified Qualified Code(s): R07.9 - Chest pain, unspecified Code(s): R07.9 - Chest pain, unspecified Status: Acute Assessment and Plan: Likely secondary to coughing. r/o ACS. Trend troponin. telemetry. Cardiology has been consulted by ER provider. (3) Acute exacerbation of chronic obstructive airways disease: Code(s): J44.1 - Chronic obstructive pulmonary disease with (acute) exacerbation Status: Acute Assessment and Plan: Continue bronchodilators and steroid therapy. (4) Chronic respiratory failure with hypoxia: Code(s): J96.11 - Chronic respiratory failure with hypoxia Status: Chronic Assessment and Plan: Continue oxygen supplementation. (5) Hyperlipidemia: Qualifiers: Hyperlipidemia type: unspecified Qualified Code(s): E78.5 - Hyperlipidemia, unspecified Code(s): E78.5 - Hyperlipidemia, unspecified Status: Chronic Assessment and Plan: Continue simvastatin PO. Additional Plan Date of service was 10/15/2019 at 22:30 hrs. Subjective Date/time seen: 10/18/19 10:54 patient is 69-year-old male with history of and history and states COPD with chronic respiratory failure on home oxygen patient was just discharged 2 days ago after being treated for exacerbation of COPD patient states upon arrival at home he was still having cough shortness o breath was progressive getting worse and developed the chest pain, lower extremity swelling, patient presented emergency department for further evaluation, his tropes were elevated, patient was started on updraft, Solu-Medrol, and Lasix for lower extremity edema, patient was seen by construction operations manager today and had a cardiac catheterization which was essentially normal without significant coronary artery disease, and patient has normal LV function, recommending maximum medical management today patient still complains shortness of breath wet cough and congestion, unable to expotorate, will add Pulmozyme to help with congestion and this will help dry and improve his breathing. will continue to monitor Review of Systems Review of Systems: All systems reviewed & are unremarkable except as noted in HPI and below Exam Const: General: comfortable and no acute distress HENMT: General nose exam: Normal nares present Mouth: Yes moist mucous membranes Eyes: General: appearance normal, both eyes and all related structures Sclera: sclerae normal Neck: Neck: supple Resp: Other: bilateral poor air entry with rales and rhonchi Cardio: Rate: regular
[2019-10-18] MEDS: DORNASE ALFA INH SOLN 1 MG/ML 2.5 ML AMP 2.5 MG INHALATION ×2 (12:34→18:58)
--- NOTE | 2019-10-18 13:43 | PM.PNCARD ---
Progress Note: A&P Assessment and Plan (1) BPH (benign prostatic hyperplasia): Code(s): N40.0 - Benign prostatic hyperplasia without lower urinary tract symptoms Status: Acute (2) Urinary retention: Code(s): R33.9 - Retention of urine, unspecified Status: Acute Assessment and Plan: management per PC and urology (3) Non-ST elevation myocardial infarction (NSTEMI): Code(s): I21.4 - Non-ST elevation (NSTEMI) myocardial infarction Status: Acute Assessment and Plan: Pt remains asymptomatic cath showed only mild CAD ECHO showed hyperdynamic LV systolic function cont medical management and risk factor modification (4) Acute exacerbation of chronic obstructive pulmonary disease: Code(s): J44.1 - Chronic obstructive pulmonary disease with (acute) exacerbation Status: Acute (5) Hypertension: Qualifiers: Hypertension type: unspecified Qualified Code(s): I10 - Essential (primary) hypertension Code(s): I10 - Essential (primary) hypertension Status: Chronic Assessment and Plan: well controlled cont meds (6) Hyperlipidemia: Qualifiers: Hyperlipidemia type: unspecified Qualified Code(s): E78.5 - Hyperlipidemia, unspecified Code(s): E78.5 - Hyperlipidemia, unspecified Status: Chronic Assessment and Plan: Pt appears stable from cardiac standpoint In case of dc fu with Dr. Arguelles in one week. Subjective Date/time seen: 10/18/19 13:43 pt feels better today. He was moved to medical floor. Pt was seen and examined, chart was reviewed, case d/w pt's nurse. Review of Systems Review of Systems: All systems reviewed & are unremarkable except as noted in HPI and below Constitutional: Constitutional: Reports as per HPI Eyes: Eyes: Reports as per HPI ENT: Reports system reviewed and no additional complaints, except as documented and Reports as per HPI Cardiovascular: Cardiovascular: Reports as per HPI Respiratory: Respiratory: Reports as per HPI Gastrointestinal: Gastrointestinal: Reports as per HPI Genitourinary: Genitourinary: Reports as per HPI Musculoskeletal: Musculoskeletal: Reports as per HPI Exam Const: General: no acute distress Nutritional Appearance: well nourished Orientation/consciousness: patient oriented x3 HENMT: Head: normal to inspection and atraumatic Ears: hearing grossly normal bilaterally Face and sinus: normal facial exam Eyes: General: appearance normal, both eyes and all related structures Pupils: Equal, round and reactive pupils present EOM: EOMs intact bilaterally Neck: Neck: supple Chest: Chest palpation & inspection: normal inspection of the chest Resp: Effort & Inspection: normal respiratory effort and no respiratory distress Auscultation: clear to auscultation bilaterally Cardio: Jugular venous distension: no JVD Rate: regular rate Heart sounds: S1 normal heart sound present, S2 normal heart sound present and no murmurs Peripheral pulses: Peripheral pulses 2+ throughout GI: GI Palp: No abdominal tenderness Auscultation: normal bowel sounds Skin: General skin exam: normal color Neuro: General: patient oriented x3 Cranial nerves: Yes Equal, round and reactive pupils present Extrem: General: normal to inspection and no clubbing, cyanosis or edema Objective Data Vital Signs Vital Signs: Vital Signs - 24 hr 10/17/19 13:46 10/17/19 16:00 10/17/19 18:25 Temperature 36.9 C 37.1 C Pulse Rate 90 93 99 Respiratory Rate 18 26 H 18 Blood Pressure 92/66 L 140/76 Pulse Oximetry 95 92 10/17/19 20:00 10/17/19 21:30 10/17/19 21:43 Temperature Pulse Rate 94 85 89 Respiratory Rate 18 Blood Pressure Pulse Oximetry 10/17/19 22:00 10/18/19 00:19 10/18/19 02:00 Temperature 37.1 C 36.7 C Pulse Rate 95 95 95 Respiratory Rate 18 18 Blood Pressure 113/72 133/86 Pulse Oximetry 93 94 10/18/19 03:04 10/18/19 04:00 10/18/19 06:
--- NOTE | 2019-10-18 17:35 | PC.NURSE ---
Patient's breathing more labored. States he is worn out from coughing and struggling to breathe. Patient appears to be struggling. Congested cough also noted. Patient states he has been unable to cough anything up. HR 110, RR 24, BP 133/80, pulse ox 89-90% on 3 liters per nasal cannula. Called Dr. Michel. Orders received for stat ABGs and BIPAP. Called respiratory therapy and notified Nelli VALLEJO of orders. Will continue to monitor patient.
--- NOTE | 2019-10-18 18:23 | PC.NURSE ---
Patient has been placed on BIPAP by R.T. O2 sat 95% on BIPAP. HR remains 115.
[2019-10-18 18:26] LABS: Base Excess ABG 10.8 mEq/l (+/-2.0); Fractional Inspired Oxygen 32 %; HCO3 ABG 38.2 mEq/l (22.0-26.0); Oxygen Content ABG 20.9 %vol (16.0-22.0); Oxyhemoglobin 87.7 % THb (90.0-100.0); PO2 FiO2 Ratio Arterial Blood 1.75 %; pH ABG 7.422 (7.350-7.450)
[2019-10-18 18:27] LABS: Site Drawn LEFT BRACHIAL
[2019-10-18 18:28] LABS: Device NASAL CANNULA
--- NOTE | 2019-10-18 18:38 | PC.NURSE ---
Patient called me into room. Struggling to breathe and very anxious. Pulling at BIPAP. BIPAP removed and O2 at 3 liters per nasal cannula reapplied. Patient states he panicked with the BIPAP and cannot tolerate it. After several minutes, patient started calming down. Breathing remains labored. Called Dr. Michel and gave him the ABG results. Also gave him patient update. He states he will have Cara CLEMENTE come to see the patient now. Orders received for stat nebulizer and meds. Notified R.T. of same.
[2019-10-18] MEDS: methylPREDNISolone SOD SUCC 125 MG VIAL IV PUSH (18:50)
--- NOTE | 2019-10-18 18:55 | PC.NURSE ---
Respiratory therapy at bedside giving STAT nebulizer. Discussing BIPAP with patient. Cara CLEMENTE also here and assessing patient.
[2019-10-18 20:39] LABS: Alveolar/Arterial O2 Gradient 118.4 mmHg; Carboxyhemoglobin 0.4 % THb (0-2.0); Fractional Inspired Oxygen 35 %; HCO3 ABG 39.2 mEq/l (22.0-26.0); Methemoglobin ABG 0.5 %THb (0-1.5); Oxygen Content ABG 22.4 %vol (16.0-22.0); Oxygen Saturation ABG 92.5 % (95.0-100.0); Oxyhemoglobin 91.2 % THb (90.0-100.0); PCO2 ABG 58.4 mmHg (35.0-45.0); PO2 ABG 63.3 mmHg (80.0-100.0); PO2 FiO2 Ratio Arterial Blood 1.81 %; Reduced Hemoglobin 7.9 %THb (0-5.0); Total Hemoglobin 17.5 g/dL (12.0-18.0); pH ABG 7.445 (7.350-7.450)
[2019-10-18 20:40] LABS: Device NON-INVASIVE VENT; Modified Allen's Test Pass; Site Drawn RIGHT RADIAL
[2019-10-18 20:41] LABS: Non-Invasive Inspiratory Pressure 14 CMH2O; Non-Invasive Vent Rate 14 /MIN
[2019-10-18 20:42] LABS: Non-Invasive Expiratory Pressure 8 CMH2O
[2019-10-18] MEDS: ATORVASTATIN 40 MG TABLET PO (20:52)
[2019-10-18] MEDS: rOPINIRole HCL 1 MG TABLET PO (20:59)
[2019-10-19] VITALS (27 sets, daily range): BP systolic 111–132; BP diastolic 73–83; PULSE 94–113; RESP 16–24; TEMP 36.2–37.1; O2SAT 89–96
[2019-10-19] MEDS: IPRATROPIUM BR 0.02% INH SOLN 0.5 MG/2.5 ML VIAL INHALATION ×4 (02:01→19:46)
[2019-10-19] MEDS: ALBUTEROL SULFATE NEB 2.5 MG/0.5 ML INH 5 MG INHALATION ×4 (02:01→19:45)
[2019-10-19 05:12] LABS: Hematocrit 44.1 % (42.0-52.0); Hemoglobin 15.3 g/dL (14.0-18.0); Mean Corpuscular HGB Conc 34.7 g/dl (32-36); Mean Corpuscular Hemoglobin 32.6 pg (26-34); Mean Platelet Volume 9.8 fl (7.4-10.4); Platelet Count Result 302 k/mm3 (150-375); Red Blood Count 4.69 M/mm3 (4.6-6.20); Red Cell Distribution Width 11.1 % (11.5-14.5); White Blood Count 20.5 K/mm3 (4.5-10.0)
[2019-10-19 05:28] LABS: Anion Gap 5.99999 mmol/L (8-16); Blood Urea Nitrogen 39 mg/dL (9-20); Calcium 8.6 mg/dL (8.4-10.2); Carbon Dioxide > 40 mmol/L (22-30); Chloride 85 mmol/L (98-107); Estimated CRCL calculation 57 ml/min; Estimated Glomerular Filt Rate > 60; Glucose 166 mg/dL (75-110); Potassium 3.8 mmol/L (3.4-5.0); Sodium 131 mmol/L (137-145)
[2019-10-19] MEDS: methylPREDNISolone SOD SUCC 125 MG VIAL 60 MG IV PUSH ×3 (06:29→17:30)
[2019-10-19] MEDS: BUDESONIDE RESPULE NEB 0.5 MG/2 ML AMP INHALATION ×2 (07:45→19:46)
[2019-10-19] MEDS: DORNASE ALFA INH SOLN 1 MG/ML 2.5 ML AMP 2.5 MG INHALATION ×2 (07:45→19:46)
--- NOTE | 2019-10-19 08:00 | PC.NURSE ---
Patient called me to room. Labored breathing and very anxious. States he feels like he can't breathe and feels like he is having an anxiety attack. Called Dr. Michel and orders received for po Xanax. Talked to patient and urged him to slow breathing. Patient states he feels slightly more relaxed but feels he cannot cough anything up. Breath sounds very diminished. Patient using accessory muscles to breathe. Transfer orders received from Dr. Michel.
[2019-10-19] MEDS: ALPRAZolam 0.25 MG TABLET PO ×2 (08:28→18:51)
[2019-10-19] MEDS: TAMSULOSIN HCL 0.4 MG CAPSULE PO (08:30)
[2019-10-19] MEDS: PANTOPRAZOLE 40 MG TABLET PO (08:30)
[2019-10-19] MEDS: FINASTERIDE 5 MG TABLET PO (08:30)
[2019-10-19] MEDS: CITALOPRAM HYDROBROMIDE 20 MG TABLET 40 MG PO (08:30)
[2019-10-19] MEDS: ASPIRIN 81 MG ENTERIC TABLET PO (08:30)
[2019-10-19] MEDS: acetaZOLAMIDE TAB 250 MG TABLET PO (09:12)
--- NOTE | 2019-10-19 09:15 | PC.NURSE ---
Report given to Zeinab ESCALONA. Patient transferred to room 205 via bed with staff assisting. Settled in room. Handoff to IMU staff.
--- NOTE | 2019-10-19 09:16 | PC.NURSE ---
This patient, Terrence Dugan, was received from [facility] on 10/19/19 at 0916 into [facility] 205. Personal belongings list checked and signed. Patient/family oriented to unit policies and routines
--- NOTE | 2019-10-19 13:14 | PM.IMPN ---
Progress Note: A&P Assessment and Plan (1) Acute dyspnea: Code(s): R06.00 - Dyspnea, unspecified Status: Acute Assessment and Plan: Appears to be secondary to ongoing COPD exacerbation r/o acute CHF exacerbation as well. Continue treatment for COPD as well as Lasix IV. Echocardiogram. TSH w/ reflex T4. 10/19/19 13:14 patient is 69-year-old male with history of and history and states COPD with chronic respiratory failure on home oxygen patient was just discharged 2 days ago after being treated for exacerbation of COPD patient states upon arrival at home he was still having cough shortness o breath was progressive getting worse and developed the chest pain, lower extremity swelling, patient presented emergency department for further evaluation, his tropes were elevated, patient was started on updraft, Solu-Medrol, and Lasix for lower extremity edema, patient was seen by chair car driver today and had a cardiac catheterization which was essentially normal without significant coronary artery disease, and patient has normal LV function, recommending maximum medical management on 10/17 in the evening patient had an episode of or worsening short of breath hypoxia and anxiety, ABG were done showed elevated CO2, patient was given extra dose of Solu-Medrol 125 mg time, Lasix 40 mg IV, and updraft, and placed on BiPAP. today patient still quite anxious and short of breath, did not want to wear BiPAP, patient was given low-dose of Xanax to help, currently patient is on BiPAP will continue, understand patient does not have BiPAP at home, we have consulted pulmonology patient will benefit having BiPAP at home specially for nighttime, patient's CO2 is climbing give 1 time dose of Diamox 250 mg, will monitor, patient's BUN is rising will stop Lasix,will continue to monitor further recommendation follow (2) Chest pain: Qualifiers: Chest pain type: unspecified Qualified Code(s): R07.9 - Chest pain, unspecified Code(s): R07.9 - Chest pain, unspecified Status: Acute Assessment and Plan: Likely secondary to coughing. r/o ACS. Trend troponin. telemetry. Cardiology has been consulted by ER provider. (3) Acute exacerbation of chronic obstructive airways disease: Code(s): J44.1 - Chronic obstructive pulmonary disease with (acute) exacerbation Status: Acute Assessment and Plan: Continue bronchodilators and steroid therapy. (4) Chronic respiratory failure with hypoxia: Code(s): J96.11 - Chronic respiratory failure with hypoxia Status: Chronic Assessment and Plan: Continue oxygen supplementation. (5) Hyperlipidemia: Qualifiers: Hyperlipidemia type: unspecified Qualified Code(s): E78.5 - Hyperlipidemia, unspecified Code(s): E78.5 - Hyperlipidemia, unspecified Status: Chronic Assessment and Plan: Continue simvastatin PO. Subjective Date/time seen: 10/19/19 13:14 patient is 69-year-old male with history of and history and states COPD with chronic respiratory failure on home oxygen patient was just discharged 2 days ago after being treated for exacerbation of COPD patient states upon arrival at home he was still having cough shortness o breath was progressive getting worse and developed the chest pain, lower extremity swelling, patient presented emergency department for further evaluation, his tropes were elevated, patient was started on updraft, Solu-Medrol, and Lasix for lower extremity edema, patient was seen by chair car driver today and had a cardiac catheterization which was essentially normal without significant coronary artery disease, and patient has normal LV function, recommending maximum medical management on 10/17 in the evening patient had an episode of or worsening short of breath hypoxia and anxiety, ABG were done showed elevated CO2, patient was given extra dose of Solu-Medrol 125 mg time, Lasix 40 mg IV, and updraft, and place
--- NOTE | 2019-10-19 13:39 | PM.PNCARD ---
Progress Note: A&P Assessment and Plan (1) BPH (benign prostatic hyperplasia): Code(s): N40.0 - Benign prostatic hyperplasia without lower urinary tract symptoms Status: Acute Assessment and Plan: PC and urology fu (2) Urinary retention: Code(s): R33.9 - Retention of urine, unspecified Status: Acute (3) Acute exacerbation of chronic obstructive pulmonary disease: Code(s): J44.1 - Chronic obstructive pulmonary disease with (acute) exacerbation Status: Acute (4) Elevated troponin: Code(s): R79.89 - Other specified abnormal findings of blood chemistry Status: Acute Assessment and Plan: Pt had cath which showed only mild CAD ECHO showed normal LV systolic function cont meds (5) Hypertension: Qualifiers: Hypertension type: unspecified Qualified Code(s): I10 - Essential (primary) hypertension Code(s): I10 - Essential (primary) hypertension Status: Chronic Assessment and Plan: well controlled cont meds (6) Former smoker: Code(s): Z87.891 - Personal history of nicotine dependence Status: Acute Subjective Date/time seen: 10/19/19 13:39 Pt feels better today. Less abdominal distenstion. SOB gradually improving. No CP. Pt was seen and examined, chart reviewed. Review of Systems Review of Systems: All systems reviewed & are unremarkable except as noted in HPI and below Constitutional: Constitutional: Reports as per HPI Eyes: Eyes: Reports as per HPI ENT: Reports system reviewed and no additional complaints, except as documented and Reports as per HPI Cardiovascular: Cardiovascular: Reports as per HPI Respiratory: Respiratory: Reports as per HPI Gastrointestinal: Gastrointestinal: Reports as per HPI Genitourinary: Genitourinary: Reports as per HPI Musculoskeletal: Musculoskeletal: Reports as per HPI Exam Const: General: no acute distress Nutritional Appearance: well nourished Orientation/consciousness: patient oriented x3 HENMT: Head: normal to inspection and atraumatic Ears: hearing grossly normal bilaterally Face and sinus: normal facial exam Eyes: General: appearance normal, both eyes and all related structures Pupils: Equal, round and reactive pupils present EOM: EOMs intact bilaterally Neck: Neck: supple Chest: Chest palpation & inspection: normal inspection of the chest Resp: Effort & Inspection: normal respiratory effort and no respiratory distress Auscultation: clear to auscultation bilaterally Cardio: Jugular venous distension: no JVD Rate: regular rate Heart sounds: S1 normal heart sound present, S2 normal heart sound present and no murmurs Peripheral pulses: Peripheral pulses 2+ throughout GI: GI Palp: No abdominal tenderness Auscultation: normal bowel sounds Skin: General skin exam: normal color Neuro: General: patient oriented x3 Cranial nerves: Yes Equal, round and reactive pupils present Extrem: General: normal to inspection and no clubbing, cyanosis or edema Objective Data Vital Signs Vital Signs: Vital Signs - 24 hr 10/18/19 14:00 10/18/19 16:00 10/18/19 17:35 Temperature 37.4 C Pulse Rate 118 H 111 H 110 H Respiratory Rate 21 H 24 H Blood Pressure 128/86 133/80 Pulse Oximetry 91 89 L 10/18/19 17:43 10/18/19 18:13 10/18/19 18:55 Temperature 37.2 C Pulse Rate 109 H 115 H 109 H Respiratory Rate 23 H 24 H 22 H Blood Pressure 133/81 Pulse Oximetry 92 95 10/18/19 19:05 10/18/19 19:10 10/18/19 20:00 Temperature Pulse Rate 100 118 H 113 H Respiratory Rate 22 H 22 H Blood Pressure Pulse Oximetry 95 10/18/19 22:00 10/19/19 00:00 10/19/19 02:00 Temperature 36.8 C 37.1 C Pulse Rate 115 H 97 100 Respiratory Rate 16 20 Blood Pressure 122/80 111/76 Pulse Oximetry 98 93 10/19/19 02:03 10/19/19 02:15 10/19/19 04:10 Temperature Pulse Rate 112 H 109 H 96 Respiratory Rate 22 H 22 H Blood Pressure Pulse Oximetr
--- NOTE | 2019-10-19 18:45 | PM.CNPUL ---
Assessment and Plan Assessment and plan (1) Acute on chronic respiratory failure with hypoxia and hypercapnia: Code(s): J96.21 - Acute and chronic respiratory failure with hypoxia; J96.22 - Acute and chronic respiratory failure with hypercapnia Status: Acute Assessment and Plan: He has been on O2 at home several years, has not had increased CO2 until recent events including COPD exacerbation and non-STEMI with acute CHF, managed by inspector exhaust emissions, with a cardiac cath Oct 15 which was negative for obstructing lesions. He is on BiPAP with improvement in his hypercapnea. He has severe end stage COPD, and has declined evaluation for lung transplant. - changed BiPAP settings 23/10 -> 13 to have smaller TV, has been over 700 with a wt of 55 kg, BMI 19. Using IBW 60 kg, goal TV may be 480 ml, so lowering IPAP and EPAP will continue to ventilate with lower TV with a goal of 500-600 ml. He may be a candidate for NPPV for treatment of advanced COPD and respiratory failure. HE can wear it 2 hours on and 2 hours off as tolerated. Does not need to wear it constantly. - continue nebulized Pulmozyme, Pulmicort, ipratropium and albuterol; He may be better going home on nebulized Pulmicort than Symbicort. At his advanced stage, he may not be able to get the benefit from an inhaler compared to nebulized meds. - nasal dilator strips to assist with his nasal deviation - careful daily monitoring of serum bicarb while taking acetazolamide; now it is 39, just started aceatzolamide which can drop pH briskly. \ - wean IV solumedrol 40 mg IV Q 6 hours, and transition to oral in 1-2 days - may benefit form Daliresp; will review old records and see if he has tried it - anxiolytics seem to help. Buspar is a good choice for anxiety in COPD. (2) COPD, severe: Code(s): J44.9 - Chronic obstructive pulmonary disease, unspecified Status: Acute Assessment and Plan: with exacerbation (3) Non-ST elevation myocardial infarction (NSTEMI): Code(s): I21.4 - Non-ST elevation (NSTEMI) myocardial infarction Status: Acute Assessment and Plan: elevated troponins at admission, associated with leg swelling and coughing, no obstructing lesions on cath; now with aggressive medical management (4) Former smoker: Code(s): Z87.891 - Personal history of nicotine dependence Status: Acute Assessment and Plan: quit 2007 after 90 pack year history History of Present Illness History of Present Illness Consult date: 10/19/19 Requesting physician: Martha Michel MD Chief complaint: chest pain, copd exacerbation Narrative: Thank you for the consult. This 63 yo man is followed in our clinic, was recently admitted after choking due to swallowing a pill that he aspirated on, was discharged and returned Oct 14 with increased leg swellign for 2 days and increased shortness of breath. He had increased troponins, 0.225, then 0.203, then 0.185, consistent with anon-ST elevation [place]. Oct 15, he had a cardiac cath showing minimal disease, he did not require a stent. Today he is feeling better, has been wearing BiPAP due to increasing pCO2. His WBc is higher 20.5K. He was weating BiPAP when the last ABg was obtained, now 23/10, rate 14, FiO2 35%. Review of Systems Review of Systems: All systems reviewed & are unremarkable except as noted in HPI and below (HPI. He has not been exposed to anyone with infectious symptoms) Constitutional: Constitutional: Denies body ache(s) and Denies fever(s) Respiratory: Respiratory: Reports dyspnea Psychiatric: Comments: He has been exceptionally anxious over the last few days, getting alprazolam with good response. [facility] Past Medical History Medical History (Reviewed 10/17/19 @ 16:34 by Ron
[2019-10-19] MEDS: rOPINIRole HCL 1 MG TABLET PO (20:19)
[2019-10-19] MEDS: ATORVASTATIN 40 MG TABLET PO (20:19)
--- NOTE | 2019-10-19 21:50 | PCRCNOTE ---
Nurse called for patient desaturation & distress. Patient found with sats in mid-80s on 3L NC. Patient placed on BiPAP of 12/7 35%. Sats improved but after less than 5 minutes, patient stated that he couldn't take wearing it. Patient placed on 5L NC. Sats improved to 93%.
[2019-10-19] MEDS: methylPREDNISolone SOD SUCC 40 MG VIAL IV PUSH (23:34)
[2019-10-20] VITALS (22 sets, daily range): BP systolic 105–139; BP diastolic 64–83; PULSE 88–113; RESP 15–24; TEMP 36.2–37.3; O2SAT 91–100
[2019-10-20] MEDS: TEMAZEPAM 15 MG CAPSULE PO (00:17)
[2019-10-20] MEDS: ALBUTEROL SULFATE NEB 2.5 MG/0.5 ML INH 5 MG INHALATION ×4 (01:25→20:28)
[2019-10-20] MEDS: IPRATROPIUM BR 0.02% INH SOLN 0.5 MG/2.5 ML VIAL INHALATION ×4 (01:25→20:29)
[2019-10-20 04:51] LABS: Hematocrit 44.7 % (42.0-52.0); Hemoglobin 15.2 g/dL (14.0-18.0); Mean Corpuscular Hemoglobin 32.2 pg (26-34); Mean Corpuscular Volume 94.7 fl (80-100); Mean Platelet Volume 9.8 fl (7.4-10.4); Platelet Count Result 259 k/mm3 (150-375); Red Blood Count 4.72 M/mm3 (4.6-6.20); Red Cell Distribution Width 10.8 % (11.5-14.5); White Blood Count 35.1 K/mm3 (4.5-10.0)
[2019-10-20 05:08] LABS: Anion Gap 6 mmol/L (8-16); Blood Urea Nitrogen 33 mg/dL (9-20); Calcium 8.7 mg/dL (8.4-10.2); Carbon Dioxide 37 mmol/L (22-30); Chloride 86 mmol/L (98-107); Estimated CRCL calculation 52 ml/min; Estimated Glomerular Filt Rate > 60; Glucose 147 mg/dL (75-110); Potassium 3.7 mmol/L (3.4-5.0); Sodium 129 mmol/L (137-145)
[2019-10-20] MEDS: methylPREDNISolone SOD SUCC 40 MG VIAL IV PUSH ×4 (06:25→23:48)
[2019-10-20] MEDS: BUDESONIDE RESPULE NEB 0.5 MG/2 ML AMP INHALATION ×2 (07:31→20:28)
[2019-10-20] MEDS: DORNASE ALFA INH SOLN 1 MG/ML 2.5 ML AMP 2.5 MG INHALATION ×2 (07:31→20:29)
--- NOTE | 2019-10-20 10:53 | PM.PNCARD ---
Progress Note: A&P Assessment and Plan (1) BPH (benign prostatic hyperplasia): Code(s): N40.0 - Benign prostatic hyperplasia without lower urinary tract symptoms Status: Acute Assessment and Plan: PC and urology fu (2) Urinary retention: Code(s): R33.9 - Retention of urine, unspecified Status: Acute (3) Acute exacerbation of chronic obstructive pulmonary disease: Code(s): J44.1 - Chronic obstructive pulmonary disease with (acute) exacerbation Status: Acute Assessment and Plan: - Management as per Pulmonary and Primary Services. (4) Elevated troponin: Code(s): R79.89 - Other specified abnormal findings of blood chemistry Status: Acute Assessment and Plan: Pt had cath which showed only mild CAD ECHO showed normal LV systolic function cont meds including aspirin and statin. (5) Hypertension: Qualifiers: Hypertension type: unspecified Qualified Code(s): I10 - Essential (primary) hypertension Code(s): I10 - Essential (primary) hypertension Status: Chronic Assessment and Plan: well controlled cont meds (6) Former smoker: Code(s): Z87.891 - Personal history of nicotine dependence Status: Acute Subjective Date/time seen: 10/20/19 10:53 Patient reports ongoing dyspnea at rest. He reports fatigue. He denies chest pain. Patient was seen and examined, chart reviewed, case discussed with nurse. Exam Narrative: Exam Narrative: Const: General: cooperative, alert, awake, no acute distress, not diaphoretic, chronically ill appearing, tired appearing and uncomfortable Nutritional Appearance: underweight Orientation/consciousness: patient oriented x3 HENMT: Head: normal to inspection General nose exam: Normal external nose present Face and sinus: normal facial exam Mouth: Yes Normal oral and palatal mucosa present and Yes oropharynx normal Eyes: Pupils: Equal, round and reactive pupils present EOM: EOMs intact bilaterally Neck: Neck: supple and no JVD Thyroid: thyroid normal Lymphatic: lymphadenopathy not noted Resp: Effort & Inspection: able to speak in 1 or 2 words at a time only. Auscultation: Breath sounds diminished bilaterally with wheezing bilaterally. Cardio: Rate: Regular Rhythm: regular rhythm Heart sounds: normal S1, S2, with 1/6 intensity systolic murmur. GI: Inspection: normal to inspection Auscultation: normal bowel sounds Skin: General skin exam: normal color and no rashes or lesions noted Neuro: General: patient oriented x3 Cranial nerves: Yes CN's II-XII intact bilaterally and Yes Equal, round and reactive pupils present Speech: normal speech Motor exam (neuro): 5/5 motor strength present throughout Sensory Exam: normal sensation Extrem: General: normal to inspection and trace bilateral lower extremity edema noted. Psych: Mental Status: mental status grossly normal Affect: normal affect Const: General: no acute distress Nutritional Appearance: well nourished Orientation/consciousness: patient oriented x3 HENMT: Head: normal to inspection and atraumatic Ears: hearing grossly normal bilaterally Face and sinus: normal facial exam Eyes: General: appearance normal, both eyes and all related structures Pupils: Equal, round and reactive pupils present EOM: EOMs intact bilaterally Neck: Neck: supple Chest: Chest palpation & inspection: normal inspection of the chest Resp: Auscultation: wheezes Cardio: Jugular venous distension: no JVD Rate: regular rate Heart sounds: S1 normal heart sound present, S2 normal heart sound present and no murmurs Peripheral pulses: Peripheral pulses 2+ throughout GI: Auscultation: normal bowel sounds Skin: General skin exam: normal color Neuro: General: patient oriented x3 Cranial nerves: Yes Equal, round and reactive pupils present Extrem: General: normal to inspection and no clubbing, cyanosis or edema Objective Data Vital Si
[2019-10-20] MEDS: ASPIRIN 81 MG ENTERIC TABLET PO (12:13)
[2019-10-20] MEDS: CITALOPRAM HYDROBROMIDE 20 MG TABLET 40 MG PO (12:13)
[2019-10-20] MEDS: TAMSULOSIN HCL 0.4 MG CAPSULE PO (12:13)
[2019-10-20] MEDS: PANTOPRAZOLE 40 MG TABLET PO (12:13)
[2019-10-20] MEDS: FINASTERIDE 5 MG TABLET PO (12:13)
--- NOTE | 2019-10-20 17:42 | PM.IMPN ---
Progress Note: A&P Assessment and Plan (1) Acute dyspnea: Code(s): R06.00 - Dyspnea, unspecified Status: Acute Assessment and Plan: Appears to be secondary to ongoing COPD exacerbation r/o acute CHF exacerbation as well. Continue treatment for COPD as well as Lasix IV. Echocardiogram. TSH w/ reflex T4. 10/20/19 17:42 patient is 69-year-old male with history of and history and states COPD with chronic respiratory failure on home oxygen patient was just discharged 2 days ago after being treated for exacerbation of COPD patient states upon arrival at home he was still having cough shortness o breath was progressive getting worse and developed the chest pain, lower extremity swelling, patient presented emergency department for further evaluation, his tropes were elevated, patient was started on updraft, Solu-Medrol, and Lasix for lower extremity edema, patient was seen by braided rug maker today and had a cardiac catheterization which was essentially normal without significant coronary artery disease, and patient has normal LV function, recommending maximum medical management on 10/17 in the evening patient had an episode of or worsening short of breath hypoxia and anxiety, ABG were done showed elevated CO2, patient was given extra dose of Solu-Medrol 125 mg time, Lasix 40 mg IV, and updraft, and placed on BiPAP. today patient still quite anxious and short of breath, did not want to wear BiPAP, patient was given low-dose of Xanax to help, currently patient is on BiPAP will continue, understand patient does not have BiPAP at home, we have consulted pulmonology patient will benefit having BiPAP at home specially for nighttime, patient's CO2 was climbing give 1 time dose of Diamox 250 mg, today patient CO2 trending down will give 1 time dose of Diamox 250 will monitor, patient reluctant to wear BiPAP I am afraid patient will crash and will have to be intubated I have spoken to the patient, his prognosis is very poor, patient's BUN is rising will stop Lasix, patient seen by Dr. Ramirez his briquette molder, will continue to monitor further recommendation follow (2) Chest pain: Qualifiers: Chest pain type: unspecified Qualified Code(s): R07.9 - Chest pain, unspecified Code(s): R07.9 - Chest pain, unspecified Status: Acute Assessment and Plan: Likely secondary to coughing. r/o ACS. Trend troponin. telemetry. Cardiology has been consulted by ER provider. (3) Acute exacerbation of chronic obstructive airways disease: Code(s): J44.1 - Chronic obstructive pulmonary disease with (acute) exacerbation Status: Acute Assessment and Plan: Continue bronchodilators and steroid therapy. (4) Chronic respiratory failure with hypoxia: Code(s): J96.11 - Chronic respiratory failure with hypoxia Status: Chronic Assessment and Plan: Continue oxygen supplementation. (5) Hyperlipidemia: Qualifiers: Hyperlipidemia type: unspecified Qualified Code(s): E78.5 - Hyperlipidemia, unspecified Code(s): E78.5 - Hyperlipidemia, unspecified Status: Chronic Assessment and Plan: Continue simvastatin PO. Subjective Date/time seen: 10/20/19 17:42 patient is 69-year-old male with history of and history and states COPD with chronic respiratory failure on home oxygen patient was just discharged 2 days ago after being treated for exacerbation of COPD patient states upon arrival at home he was still having cough shortness o breath was progressive getting worse and developed the chest pain, lower extremity swelling, patient presented emergency department for further evaluation, his tropes were elevated, patient was started on updraft, Solu-Medrol, and Lasix for lower extremity edema, patient was seen by braided rug maker today and had a cardiac catheterization which was essentially normal without significant coronary artery disease, and patient has normal LV function, fred
[2019-10-20] MEDS: acetaZOLAMIDE TAB 250 MG TABLET PO (18:26)
--- NOTE | 2019-10-20 18:32 | PM.PNPUL ---
Progress Note: A&P Assessment and Plan (1) Acute on chronic respiratory failure with hypoxia and hypercapnia: Code(s): J96.21 - Acute and chronic respiratory failure with hypoxia; J96.22 - Acute and chronic respiratory failure with hypercapnia Status: Acute Assessment and Plan: He has been on O2 at home several years, has not had increased CO2 until recent events including COPD exacerbation and non-STEMI with acute CHF, managed by patch machine operator, with a cardiac cath Oct 15 which was negative for obstructing lesions. He is on BiPAP with improvement in his hypercapnea. He has severe end stage COPD, and has declined evaluation for lung transplant. - he is not fond of using BiPAP; now 21/09 to have smaller TV, BMI 19. Lower TV with a goal of 500-600 ml. He may be a candidate for NPPV for treatment of advanced COPD and respiratory failure. - continue 2 hours on and 2 hours off as tolerated. Does not need to wear it constantly. - continue nebulized Pulmozyme, Pulmicort, ipratropium and albuterol; He may be better going home on nebulized Pulmicort than Symbicort. At his advanced stage, he may not be able to get the benefit from an inhaler compared to nebulized meds. - continue nasal dilator strips to assist with his nasal deviation - careful daily monitoring of serum bicarb while taking acetazolamide; now it is 37, just started acetazolamide which can drop pH briskly. - wean IV solumedrol 40 mg IV Q 6 hours, and transition to oral in 1-2 days - may benefit form Daliresp; will review old records and see if he has tried it - anxiolytics seem to help. Buspar is a good choice for anxiety in COPD. Will start at 7.5 mg Q 12 hours, stopped Restoril 15 mg for sleep, Trazodone started, continues Xana 0.25 mg TID PRN. (2) COPD, severe: Code(s): J44.9 - Chronic obstructive pulmonary disease, unspecified Status: Acute Assessment and Plan: with exacerbation (3) Non-ST elevation myocardial infarction (NSTEMI): Code(s): I21.4 - Non-ST elevation (NSTEMI) myocardial infarction Status: Acute Assessment and Plan: elevated troponins at admission, associated with leg swelling and coughing, no obstructing lesions on cath; now with aggressive medical management (4) Former smoker: Code(s): Z87.891 - Personal history of nicotine dependence Status: Acute Assessment and Plan: quit 2007 after 90 pack year history Subjective Date/time seen: 10/20/19 18:32 He has laryngitis today, no voice at all. He is having lots of flatus, might be swallowing air with the bipap. He is not getting any decent sleep at night, pretty anxious. Review of Systems Review of Systems: All systems reviewed & are unremarkable except as noted in HPI and below (HPI. He has not been exposed to anyone with infectious symptoms) Constitutional: Constitutional: Denies body ache(s) and Denies fever(s) Cardiovascular: Cardiovascular: Reports dyspnea Respiratory: Respiratory: Reports dyspnea Exam Const: General: comfortable Other: Alert, oriented, using accessory muscles of respiration, able to answer questions with mild dyspnea HENMT: Ears: hearing grossly normal bilaterally General nose exam: Other nasal findings present (deviated septum; narrowed nasal passage) Face and sinus: normal facial exam Mouth: Yes Normal oral and palatal mucosa present Eyes: General: appearance normal, both eyes and all related structures Neck: Neck: no JVD Lymphatic: lymphadenopathy not noted Resp: Effort & Inspection: uses accessory muscles Auscultation: diminished lung sounds Percussion: hyperresonance Cardio: Rate: regular rate Rhythm: regular rhythm Skin: General skin exam: normal color Neuro: Speech: normal speech Extrem: General
[2019-10-20] MEDS: busPIRone HCL 2.5 MG TABLET 7.5 MG PO (20:16)
[2019-10-20] MEDS: ATORVASTATIN 40 MG TABLET PO (20:16)
[2019-10-20] MEDS: SACCHAROMYCES BOULARDII 250 MG CAPSULE PO (20:17)
[2019-10-20] MEDS: rOPINIRole HCL 1 MG TABLET PO (20:17)
[2019-10-20] MEDS: ALPRAZolam 0.25 MG TABLET PO (20:17)
[2019-10-21] VITALS (27 sets, daily range): BP systolic 101–120; BP diastolic 71–81; PULSE 76–104; RESP 14–24; TEMP 36.1–37.1; O2SAT 93–100
[2019-10-21] MEDS: IPRATROPIUM BR 0.02% INH SOLN 0.5 MG/2.5 ML VIAL INHALATION ×4 (03:17→19:30)
[2019-10-21] MEDS: ALBUTEROL SULFATE NEB 2.5 MG/0.5 ML INH 5 MG INHALATION ×4 (03:17→19:30)
[2019-10-21 04:32] LABS: Hematocrit 41.1 % (42.0-52.0); Hemoglobin 14.3 g/dL (14.0-18.0); Mean Corpuscular HGB Conc 34.8 g/dl (32-36); Mean Corpuscular Hemoglobin 32.5 pg (26-34); Mean Corpuscular Volume 93.4 fl (80-100); Mean Platelet Volume 10.1 fl (7.4-10.4); Platelet Count Result 251 k/mm3 (150-375); Red Cell Distribution Width 10.7 % (11.5-14.5); White Blood Count 34.7 K/mm3 (4.5-10.0)
[2019-10-21 04:47] LABS: Anion Gap 7 mmol/L (8-16); Blood Urea Nitrogen 28 mg/dL (9-20); Calcium 8.5 mg/dL (8.4-10.2); Carbon Dioxide 36 mmol/L (22-30); Chloride 85 mmol/L (98-107); Estimated CRCL calculation 52 ml/min; Estimated Glomerular Filt Rate > 60; Glucose 146 mg/dL (75-110); Potassium 3.4 mmol/L (3.4-5.0); Sodium 128 mmol/L (137-145)
[2019-10-21] MEDS: methylPREDNISolone SOD SUCC 40 MG VIAL IV PUSH ×4 (05:41→23:56)
[2019-10-21] MEDS: ASPIRIN 81 MG ENTERIC TABLET PO (08:26)
[2019-10-21] MEDS: TAMSULOSIN HCL 0.4 MG CAPSULE PO (08:26)
[2019-10-21] MEDS: CITALOPRAM HYDROBROMIDE 20 MG TABLET 40 MG PO (08:26)
[2019-10-21] MEDS: SACCHAROMYCES BOULARDII 250 MG CAPSULE PO ×2 (08:26→17:28)
[2019-10-21] MEDS: busPIRone HCL 2.5 MG TABLET 7.5 MG PO ×2 (08:26→20:15)
[2019-10-21] MEDS: PANTOPRAZOLE 40 MG TABLET PO (08:26)
[2019-10-21] MEDS: FINASTERIDE 5 MG TABLET PO (08:26)
[2019-10-21] MEDS: DORNASE ALFA INH SOLN 1 MG/ML 2.5 ML AMP 2.5 MG INHALATION ×2 (08:27→19:37)
[2019-10-21] MEDS: BUDESONIDE RESPULE NEB 0.5 MG/2 ML AMP INHALATION ×2 (08:28→19:30)
--- NOTE | 2019-10-21 11:05 | PCDIET ---
Nutrition Follow-Up Complete: Nutrition Diagnosis: Inadequate oral intake related to poor appetite as evidenced by BMI of 18.1 and fluctuating weight between 54 and 54.6 kg Nutrition Goal: Patient to consume 75% or more of meals and supplements Goal not met. Patient c/o phleghm filling up stomach, so has decreased appetite and early satiety. Reports physician is aware. Patient reports taking only small amounts of Ensure Compact and has had minimal intake over the past few days on heart healthy diet. Recommend continuing Ensure Compact BID and liberalizing diet to regular. Patient may also benefit from appetite stimulant, if medically appropriate. Encouraged small, frequent meals and taking as much oral supplement as possible. Patient agreeable to try gelatin at this time. Last recorded weight is 54.9 kg which is increased from last review. Bowel Motility: +BM on 10/18/19, per toileting assessment. Labs Reviewed: Glu (146), BUN (28), Na (128) Meds Noted: Albuterol, Solu Medrol, Atrovent, Protonix, Florastor Additional Notes: No documented pressure ulcers. Will continue to monitor with same goal. May need to consider supplemental nutrition support if no improvement in intakes over the next few days. Nutrition Monitoring and Evaluation: Follow up in 3 days.
--- NOTE | 2019-10-21 11:09 | PM.PNCARD ---
Progress Note: A&P Assessment and Plan (1) Elevated troponin: Code(s): R79.89 - Other specified abnormal findings of blood chemistry Status: Acute Assessment and Plan: 63 y/o with severe emphysema, COPD, chronic resp failure, HTN, former smoker who is seen in cardiac consultation for mildly elevated troponin in the setting of COPD exacerbation Pt had cath which showed only mild CAD (25% LM otherwise no significant disease) ECHO showed normal LV systolic function. he has moderate pulmonary HTN which is expected with his advanced lung disease He is stable from cardiac standpoint. Continue aspirin and statin. (2) Acute exacerbation of chronic obstructive pulmonary disease: Code(s): J44.1 - Chronic obstructive pulmonary disease with (acute) exacerbation Status: Acute Assessment and Plan: - Management as per Pulmonary and Primary Services. (3) Hypertension: Qualifiers: Hypertension type: unspecified Qualified Code(s): I10 - Essential (primary) hypertension Code(s): I10 - Essential (primary) hypertension Status: Chronic Assessment and Plan: well controlled cont meds Subjective Date/time seen: 10/21/19 11:09 Feels better overall. Denies chest pain. difficult to tolerate BiPAP but he is using it. Review of Systems Review of Systems: All systems reviewed & are unremarkable except as noted in HPI and below Constitutional: Constitutional: Reports as per HPI Eyes: Eyes: Reports as per HPI ENT: Reports system reviewed and no additional complaints, except as documented and Reports as per HPI Cardiovascular: Cardiovascular: Reports as per HPI Respiratory: Respiratory: Reports as per HPI Gastrointestinal: Gastrointestinal: Reports as per HPI Genitourinary: Genitourinary: Reports as per HPI Musculoskeletal: Musculoskeletal: Reports as per HPI Exam Narrative: Exam Narrative: Const: General: cooperative, alert, awake, no acute distress, not diaphoretic, chronically ill appearing, tired appearing and uncomfortable Nutritional Appearance: underweight Orientation/consciousness: patient oriented x3 HENMT: Head: normal to inspection General nose exam: Normal external nose present Face and sinus: normal facial exam Mouth: Yes Normal oral and palatal mucosa present and Yes oropharynx normal Eyes: Pupils: Equal, round and reactive pupils present EOM: EOMs intact bilaterally Neck: Neck: supple and no JVD Thyroid: thyroid normal Lymphatic: lymphadenopathy not noted Resp: Effort & Inspection: able to speak in 1 or 2 words at a time only. Auscultation: Breath sounds diminished bilaterally with wheezing bilaterally. Cardio: Rate: Regular Rhythm: regular rhythm Heart sounds: normal S1, S2, with 1/6 intensity systolic murmur. GI: Inspection: normal to inspection Auscultation: normal bowel sounds Skin: General skin exam: normal color and no rashes or lesions noted Neuro: General: patient oriented x3 Cranial nerves: Yes CN's II-XII intact bilaterally and Yes Equal, round and reactive pupils present Speech: normal speech Motor exam (neuro): 5/5 motor strength present throughout Sensory Exam: normal sensation Extrem: General: normal to inspection and trace bilateral lower extremity edema noted. Psych: Mental Status: mental status grossly normal Affect: normal affect Const: General: no acute distress Nutritional Appearance: well nourished Orientation/consciousness: patient oriented x3 HENMT: Head: normal to inspection and atraumatic Ears: hearing grossly normal bilaterally Face and sinus: normal facial exam Eyes: General: appearance normal, both eyes and all related structures Pupils: Equal, round and reactive pupils present EOM: EOMs intact bilaterally Neck: Neck: supple Chest: Chest palpation & inspection: normal inspection of the chest Resp: Effort & Inspection: normal respiratory effort and no respiratory distress Auscultation
--- NOTE | 2019-10-21 14:27 | PM.IMPN ---
Progress Note: A&P Assessment and Plan (1) Acute dyspnea: Code(s): R06.00 - Dyspnea, unspecified Status: Acute Assessment and Plan: Patient is 69-year-old male with history of and history and states COPD with chronic respiratory failure on home oxygen patient was just discharged 2 days ago after being treated for exacerbation of COPD patient states upon arrival at home he was still having cough shortness o breath was progressive getting worse and developed the chest pain, lower extremity swelling, patient presented emergency department for further evaluation, his tropes were elevated, patient was started on updraft, Solu-Medrol, and Lasix for lower extremity edema, patient was seen by dental internship today and had a cardiac catheterization which was essentially normal without significant coronary artery disease, and patient has normal LV function, recommending maximum medical management on 10/17 in the evening patient had an episode of or worsening short of breath hypoxia and anxiety, ABG were done showed elevated CO2, patient was given extra dose of Solu-Medrol 125 mg time, Lasix 40 mg IV, and updraft, and placed on BiPAP. today patient still quite anxious and short of breath, did not want to wear BiPAP, patient was given low-dose of Xanax to help, currently patient is on BiPAP will continue, understand patient does not have BiPAP at home, we have consulted pulmonology patient will benefit having BiPAP at home specially for nighttime, continue to monitor ABG and DR Nolan recommendatins. Pt is DNR. (2) Chest pain: Qualifiers: Chest pain type: unspecified Qualified Code(s): R07.9 - Chest pain, unspecified Code(s): R07.9 - Chest pain, unspecified Status: Acute Assessment and Plan: Likely secondary to coughing. r/o ACS. Cardiology on board (3) Acute exacerbation of chronic obstructive airways disease: Code(s): J44.1 - Chronic obstructive pulmonary disease with (acute) exacerbation Status: Acute Assessment and Plan: Continue bronchodilators and steroid therapy. (4) Chronic respiratory failure with hypoxia: Code(s): J96.11 - Chronic respiratory failure with hypoxia Status: Chronic Assessment and Plan: Continue oxygen supplementation. with Bipap at night (5) Hyperlipidemia: Qualifiers: Hyperlipidemia type: unspecified Qualified Code(s): E78.5 - Hyperlipidemia, unspecified Code(s): E78.5 - Hyperlipidemia, unspecified Status: Chronic Assessment and Plan: Continue simvastatin PO. Subjective Date/time seen: 10/21/19 14:27 Interval history: patient is 69-year-old male with history of and history and states COPD with chronic respiratory failure on home oxygen patient admited with SOB. Pt seen by cardiology and pulmology Pt is end stage COPD and with moderate pulmonary HTN Pt has decided on DNR code status Review of Systems Review of Systems: All systems reviewed & are unremarkable except as noted in HPI and below Respiratory: Respiratory: Reports dyspnea and Reports wheezing Comments: chest tightness, sore throat Exam Narrative: Exam Narrative: appears chronically ill older than his age Const: General: tired appearing Neck: Neck: supple and no JVD Other: minimal retraction Resp: Effort & Inspection: tachypneic Auscultation: wheezes and diminished lung sounds Cardio: Rate: regular rate and tachycardic Rhythm: regular rhythm Heart sounds: no murmurs GI: Inspection: normal to inspection Auscultation: normal bowel sounds Skin: General skin exam: normal color and no rashes or lesions noted Neuro: General: patient oriented x3 Cranial nerves: Yes CN's II-XII intact bilaterally and Yes Equal, round and reactive pupils present Speech: normal speech Motor exam (neuro): 5/5 motor strength present throughout Sensory Exam: normal sensation Other: on oxygen Extrem: General: normal to inspecti
[2019-10-21] MEDS: rOPINIRole HCL 1 MG TABLET PO (20:15)
[2019-10-21] MEDS: ATORVASTATIN 40 MG TABLET PO (20:15)
[2019-10-21] MEDS: ALPRAZolam 0.25 MG TABLET PO (20:15)
[2019-10-22] VITALS (24 sets, daily range): BP systolic 117–141; BP diastolic 74–85; PULSE 78–102; RESP 14–22; TEMP 36.4–36.6; O2SAT 93–100
[2019-10-22] MEDS: IPRATROPIUM BR 0.02% INH SOLN 0.5 MG/2.5 ML VIAL INHALATION ×4 (01:53→20:13)
[2019-10-22] MEDS: ALBUTEROL SULFATE NEB 2.5 MG/0.5 ML INH 5 MG INHALATION ×4 (01:53→20:12)
[2019-10-22] MEDS: methylPREDNISolone SOD SUCC 40 MG VIAL IV PUSH ×4 (05:26→21:11)
--- NOTE | 2019-10-22 08:46 | PM.PNCARD ---
Progress Note: A&P Assessment and Plan (1) Acute exacerbation of chronic obstructive pulmonary disease: Code(s): J44.1 - Chronic obstructive pulmonary disease with (acute) exacerbation Status: Acute Assessment and Plan: 63 y/o with severe emphysema, COPD, chronic resp failure, HTN, former smoker who is seen in cardiac consultation for mildly elevated troponin in the setting of COPD exacerbation With moderate pulmonary HTN on echo in the setting of advanced COPD. He does not appear volume overloaded on exam. Doubt that is contributing to his SOB He had indeterminate trop elevation on admission with trop of 0.05 but cath showed only mild disease Will start ASA. Continue Simvastatin Will sign off. Please don't hesitate to call with any questions. (2) Elevated troponin: Code(s): R79.89 - Other specified abnormal findings of blood chemistry Status: Acute Assessment and Plan: Likely due to increased demand from resp failure Pt had cath which showed only mild CAD (25% LM otherwise no significant disease) ECHO showed normal LV systolic function. he has moderate pulmonary HTN which is expected with his advanced lung disease He is stable from cardiac standpoint. Continue aspirin and statin. Subjective Date/time seen: 10/22/19 08:46 Still short of breath. Unable to talk in full sentences. Denies chest pain Review of Systems Review of Systems: All systems reviewed & are unremarkable except as noted in HPI and below Constitutional: Constitutional: Reports as per HPI Eyes: Eyes: Reports as per HPI ENT: Reports system reviewed and no additional complaints, except as documented and Reports as per HPI Cardiovascular: Cardiovascular: Reports as per HPI Respiratory: Respiratory: Reports as per HPI Gastrointestinal: Gastrointestinal: Reports as per HPI Genitourinary: Genitourinary: Reports as per HPI Musculoskeletal: Musculoskeletal: Reports as per HPI Exam Narrative: Exam Narrative: Const: General: cooperative, alert, awake, no acute distress, not diaphoretic, chronically ill appearing, tired appearing and uncomfortable Nutritional Appearance: underweight Orientation/consciousness: patient oriented x3 HENMT: Head: normal to inspection General nose exam: Normal external nose present Face and sinus: normal facial exam Mouth: Yes Normal oral and palatal mucosa present and Yes oropharynx normal Eyes: Pupils: Equal, round and reactive pupils present EOM: EOMs intact bilaterally Neck: Neck: supple and no JVD Thyroid: thyroid normal Lymphatic: lymphadenopathy not noted Resp: Effort & Inspection: able to speak in 1 or 2 words at a time only. Auscultation: Breath sounds diminished bilaterally with wheezing bilaterally. Cardio: Rate: Regular Rhythm: regular rhythm Heart sounds: normal S1, S2, with 1/6 intensity systolic murmur. GI: Inspection: normal to inspection Auscultation: normal bowel sounds Skin: General skin exam: normal color and no rashes or lesions noted Neuro: General: patient oriented x3 Cranial nerves: Yes CN's II-XII intact bilaterally and Yes Equal, round and reactive pupils present Speech: normal speech Motor exam (neuro): 5/5 motor strength present throughout Sensory Exam: normal sensation Extrem: General: normal to inspection and trace bilateral lower extremity edema noted. Psych: Mental Status: mental status grossly normal Affect: normal affect Const: General: no acute distress Nutritional Appearance: well nourished Orientation/consciousness: patient oriented x3 HENMT: Head: normal to inspection and atraumatic Ears: hearing grossly normal bilaterally Face and sinus: normal facial exam Eyes: General: appearance normal, both eyes and all related structures Pupils: Equal, round and reactive pupils present EOM: EOMs intact bilaterally Neck: Neck: supple Chest: Chest palpation & inspection: normal inspection of the chest Resp: Effort & Ins
[2019-10-22] MEDS: BUDESONIDE RESPULE NEB 0.5 MG/2 ML AMP INHALATION ×2 (08:50→20:12)
[2019-10-22] MEDS: DORNASE ALFA INH SOLN 1 MG/ML 2.5 ML AMP 2.5 MG INHALATION ×2 (08:50→20:13)
[2019-10-22] MEDS: busPIRone HCL 2.5 MG TABLET 7.5 MG PO ×2 (09:05→21:06)
[2019-10-22] MEDS: PANTOPRAZOLE 40 MG TABLET PO (09:05)
[2019-10-22] MEDS: CITALOPRAM HYDROBROMIDE 20 MG TABLET 40 MG PO (09:05)
[2019-10-22] MEDS: SACCHAROMYCES BOULARDII 250 MG CAPSULE PO ×2 (09:05→17:02)
[2019-10-22] MEDS: TAMSULOSIN HCL 0.4 MG CAPSULE PO (09:05)
[2019-10-22] MEDS: FINASTERIDE 5 MG TABLET PO (09:06)
[2019-10-22] MEDS: ASPIRIN 81 MG ENTERIC TABLET PO (09:06)
[2019-10-22] MEDS: ALPRAZolam 0.25 MG TABLET PO (09:07)
--- NOTE | 2019-10-22 11:28 | PCPTNOTE ---
Patient refused treatment this session. patient states that he is not doing well.
--- NOTE | 2019-10-22 13:33 | PM.PNPUL ---
Progress Note: A&P Assessment and Plan (1) Acute on chronic respiratory failure with hypoxia and hypercapnia: Code(s): J96.21 - Acute and chronic respiratory failure with hypoxia; J96.22 - Acute and chronic respiratory failure with hypercapnia Status: Acute Assessment and Plan: Not getting better with maximal treatment. Has been on O2 at home several years, recent increase in pCO2 with this COPD exacerbation w non-STEMI with acute CHF. Negative cardiac cath Oct 15; he is not wearing BiPAP, not comfortable. Has quit using. - hospice; changed him to hospice status, and he will transfer to [facility] in [place], won't be alone; Jose will be able to see him in the facility; discussed w Dr Hou. - continue O2 at 3 L/min - continue meds to reduce dyspnea; Pulmicort, ipratropium and albuterol; Xanax & buspar. - he may be better going home on nebulized Pulmicort than Symbicort; may work better. - continue nasal dilator strips to assist with his nasal deviation - careful daily monitoring of serum bicarb while taking acetazolamide; now it is 36, did not have acetazolamide today. - wean IV solumedrol 40 mg IV Q 12 hours, and transition to oral tomorrow. - anxiolytics seem to help. Buspar is working well, 7.5 mg Q 12 hours, Trazodone started, continues Xanax 0.25 mg TID PRN. (2) COPD, severe: Code(s): J44.9 - Chronic obstructive pulmonary disease, unspecified Status: Acute Assessment and Plan: -with exacerbation, getting IV steroids and bronchodilators. (3) Non-ST elevation myocardial infarction (NSTEMI): Code(s): I21.4 - Non-ST elevation (NSTEMI) myocardial infarction Status: Acute Assessment and Plan: elevated troponins at admission, associated with leg swelling and coughing, no obstructing lesions on cath; now with aggressive medical management (4) Former smoker: Code(s): Z87.891 - Personal history of nicotine dependence Status: Acute Assessment and Plan: quit 2007 after 90 pack year history Subjective Date/time seen: 10/22/19 13:33 This 63 yo man with end stage COPD and respiratory failure. He has talked with the pillowcase cutter and decided that hospice is appropriate. He is not getting better. His mother is now living with one of his brothers, Celso. Terrence says that making sure his mother was cared for was his goal, and now that she is taken care of, he says that he is ok with dying. He is alert, thinking clearly. He told me that his Cage has blood in the bag, so he does not want the Cage removed. Review of Systems Review of Systems: All systems reviewed & are unremarkable except as noted in HPI and below (HPI. He has not been exposed to anyone with infectious symptoms) Constitutional: Constitutional: Denies body ache(s) and Denies fever(s) Cardiovascular: Cardiovascular: Reports dyspnea Respiratory: Respiratory: Reports dyspnea Genitourinary: Genitourinary: Reports hematuria (new today) Exam Const: General: comfortable Other: Alert, oriented, using accessory muscles of respiration, able to answer questions with mild dyspnea HENMT: Ears: hearing grossly normal bilaterally General nose exam: Other nasal findings present (deviated septum; narrowed nasal passage) Face and sinus: normal facial exam Mouth: Yes Normal oral and palatal mucosa present Eyes: General: appearance normal, both eyes and all related structures Neck: Neck: no JVD Lymphatic: lymphadenopathy not noted Resp: Effort & Inspection: uses accessory muscles Auscultation: diminished lung sounds Percussion: hyperresonance Cardio: Rate: regular rate Rhythm: regular rhythm Skin: General skin exam: normal color Neuro: Speech: normal speech Extrem: General: no clubbing, cyanosis
--- NOTE | 2019-10-22 17:17 | PM.IMPN ---
Progress Note: A&P Assessment and Plan (1) Acute dyspnea: Code(s): R06.00 - Dyspnea, unspecified Status: Acute Assessment and Plan: Pt is DNR. Pt wants to talk to hospice tomorrow. Seen by cardiology and pulmology today. (2) Chest pain: Qualifiers: Chest pain type: unspecified Qualified Code(s): R07.9 - Chest pain, unspecified Code(s): R07.9 - Chest pain, unspecified Status: Acute Assessment and Plan: Likely secondary to coughing. r/o ACS. Cardiology on board (3) Acute exacerbation of chronic obstructive airways disease: Code(s): J44.1 - Chronic obstructive pulmonary disease with (acute) exacerbation Status: Acute Assessment and Plan: Continue bronchodilators and steroid therapy. (4) Chronic respiratory failure with hypoxia: Code(s): J96.11 - Chronic respiratory failure with hypoxia Status: Chronic Assessment and Plan: Continue oxygen supplementation. with Bipap at night (5) Hyperlipidemia: Qualifiers: Hyperlipidemia type: unspecified Qualified Code(s): E78.5 - Hyperlipidemia, unspecified Code(s): E78.5 - Hyperlipidemia, unspecified Status: Chronic Assessment and Plan: Continue simvastatin PO. Additional Plan Subjective Date/time seen: 10/22/19 17:17 Interval history: patient is 69-year-old male with history of and history and states COPD with chronic respiratory failure on home oxygen patient admited with SOB. Pt seen by cardiology and pulmology Pt is end stage COPD and with moderate pulmonary HTN Pt has decided on DNR code status. Pt is decided on hospice. Hospice team to see him tomorrow. Review of Systems Respiratory: Respiratory: Reports dyspnea and Reports wheezing Exam Narrative: Exam Narrative: appears chronically ill older than his age Resp: Effort & Inspection: tachypneic Other: bilateral poor air entry with rhonchi and wheeze Cardio: Rate: regular rate and tachycardic Rhythm: regular rhythm Heart sounds: no murmurs GI: Inspection: normal to inspection Auscultation: normal bowel sounds Psych: Affect: Anxious affect present Objective Data Vital Signs Vital Signs: Vital Signs - 24 hr 10/21/19 18:00 10/21/19 19:21 10/21/19 19:33 Temperature 37.1 C Pulse Rate 96 92 96 Respiratory Rate 20 16 Blood Pressure 120/77 Pulse Oximetry 94 97 08/11/20 19:49 10/21/19 19:52 10/21/19 20:00 Temperature Pulse Rate 98 100 Respiratory Rate 14 14 Blood Pressure Pulse Oximetry 97 93 10/21/19 20:09 10/21/19 22:00 10/21/19 22:03 Temperature Pulse Rate 90 Respiratory Rate Blood Pressure Pulse Oximetry 93 95 10/21/19 22:14 10/21/19 23:12 10/22/19 00:00 Temperature 36.5 C Pulse Rate 85 81 Respiratory Rate 20 20 Blood Pressure 112/71 Pulse Oximetry 93 95 95 10/22/19 01:53 10/22/19 01:56 10/22/19 02:00 Temperature Pulse Rate 80 84 Respiratory Rate 14 Blood Pressure Pulse Oximetry 98 10/22/19 02:02 10/22/19 04:00 10/22/19 05:59 Temperature 36.5 C Pulse Rate 79 84 78 Respiratory Rate 16 22 H Blood Pressure 123/74 Pulse Oximetry 96 10/22/19 08:00 10/22/19 08:50 10/22/19 08:53 Temperature 36.4 C Pulse Rate 91 92 Respiratory Rate 20 16 Blood Pressure 124/75 Pulse Oximetry 98 93 10/22/19 08:56 10/22/19 09:05 10/22/19 09:57 Temperature Pulse Rate 92 99 97 Respiratory Rate 16 16 Blood Pressure Pulse Oximetry 10/22/19 12:00 10/22/19 13:43 10/22/19 14:00 Temperature 36.6 C Pulse Rate 95 99 88 Respiratory Rate 16 16 Blood Pressure 117/85 Pulse Oximetry 100 10/22/19 14:26 10/22/19 16:00 Temperature 36.4 C L Pulse Rate 99 102 H Respiratory Rate 16 16 Blood Pressure 141/81 H Pulse Oximetry 97 Intake/Output Intake/Output: Intake & Output 10/19/19 10/20/19 10/21/19 10/22/19 23:59 23:59 23:59 23:59 Intake Total 350 190 [id number]
[2019-10-22] MEDS: rOPINIRole HCL 1 MG TABLET PO (21:06)
[2019-10-22] MEDS: ATORVASTATIN 40 MG TABLET PO (21:07)
[2019-10-22] MEDS: traZODone HCL 50 MG TABLET PO (22:28)
[2019-10-23] VITALS (10 sets, daily range): BP systolic 115–123; BP diastolic 54–74; PULSE 82–100; RESP 16–20; TEMP 36.1–36.5; O2SAT 93–97
[2019-10-23] MEDS: IPRATROPIUM BR 0.02% INH SOLN 0.5 MG/2.5 ML VIAL INHALATION ×2 (01:59→08:49)
[2019-10-23] MEDS: ALBUTEROL SULFATE NEB 2.5 MG/0.5 ML INH 5 MG INHALATION ×2 (01:59→08:49)
[2019-10-23] MEDS: DORNASE ALFA INH SOLN 1 MG/ML 2.5 ML AMP 2.5 MG INHALATION (08:50)
[2019-10-23] MEDS: BUDESONIDE RESPULE NEB 0.5 MG/2 ML AMP INHALATION (08:50)
[2019-10-23] MEDS: predniSONE 20 MG TABLET 40 MG PO (10:10)
[2019-10-23] MEDS: PANTOPRAZOLE 40 MG TABLET PO (10:11)
[2019-10-23] MEDS: CITALOPRAM HYDROBROMIDE 20 MG TABLET 40 MG PO (10:11)
[2019-10-23] MEDS: SACCHAROMYCES BOULARDII 250 MG CAPSULE PO (10:11)
[2019-10-23] MEDS: ASPIRIN 81 MG ENTERIC TABLET PO (10:11)
[2019-10-23] MEDS: busPIRone HCL 2.5 MG TABLET 7.5 MG PO (10:11)
[2019-10-23] MEDS: TAMSULOSIN HCL 0.4 MG CAPSULE PO (10:12)
[2019-10-23] MEDS: FINASTERIDE 5 MG TABLET PO (10:12)
[2019-10-23] MEDS: ALPRAZolam 0.25 MG TABLET PO (13:00)
--- NOTE | 2019-10-23 16:46 | PM.DS ---
DS: Admitting Diagnosis Admitting Diagnosis Admitting Diagnosis: Chest pain, copd exacerbation DS: Discharge Diagnosis Discharge Diagnosis (1) Acute dyspnea: Code(s): R06.00 - Dyspnea, unspecified Status: Acute Assessment and Plan: patient is 69-year-old male with history of and history and states COPD with chronic respiratory failure on home oxygen patient admited with SOB. Pt seen by cardiology and pulmonology Pt is end stage COPD and with moderate pulmonary HTN Pt has decided on DNR code status. Pt is decided on hospice. Given his end stage COPD and ongoing shortness of breath. Pt has decided on Hospice care. (2) Chest pain: Qualifiers: Chest pain type: unspecified Qualified Code(s): R07.9 - Chest pain, unspecified Code(s): R07.9 - Chest pain, unspecified Status: Acute Assessment and Plan: Likely secondary to coughing. r/o ACS. Cardiology on board (3) Acute exacerbation of chronic obstructive airways disease: Code(s): J44.1 - Chronic obstructive pulmonary disease with (acute) exacerbation Status: Acute Assessment and Plan: Continue bronchodilators and steroid therapy. (4) Chronic respiratory failure with hypoxia: Code(s): J96.11 - Chronic respiratory failure with hypoxia Status: Chronic Assessment and Plan: Continue oxygen supplementation. with Bipap at night (5) Hyperlipidemia: Qualifiers: Hyperlipidemia type: unspecified Qualified Code(s): E78.5 - Hyperlipidemia, unspecified Code(s): E78.5 - Hyperlipidemia, unspecified Status: Chronic Assessment and Plan: Continue simvastatin PO. DS: Summary Time Spent with Patient Time attestation: Total time spent providing and/or coordinating discharge services:40 minutes on day of discharge Exam Narrative: Exam Narrative: appears chronically ill older than his age Const: Nutritional Appearance: underweight Resp: Effort & Inspection: tachypneic Auscultation: diminished lung sounds Cardio: Rate: regular rate and tachycardic Rhythm: regular rhythm Heart sounds: no murmurs GI: Inspection: normal to inspection Auscultation: normal bowel sounds Skin: General skin exam: normal color and no rashes or lesions noted Neuro: General: patient oriented x3 Cranial nerves: Yes CN's II-XII intact bilaterally and Yes Equal, round and reactive pupils present Speech: normal speech Motor exam (neuro): 5/5 motor strength present throughout Sensory Exam: normal sensation Other: on oxygen Extrem: General: normal to inspection and edema bilateral Psych: Mental Status: mental status grossly normal Affect: normal affect and Anxious affect present Discharge Plan Discharge Consulting providers: Fern Ramirez ; Edwina Chan ; Alexander Arguelles ; Emory Pendleton ; Martha Michel ; Martinez Rojas ; Osvaldo Joyner ; Higinio Bar ; Sarah Garland Discharging Clinician: Rosalina Hou Patient Disposition: Hospice - Medical Facility Discharge Instructions: Urology: Call office for follow up appointment after discharge. Patient Instructions: Heart Failure (DC), COPD (Chronic Obstructive Pulmonary Disease) (DC) Stand Alone Forms: General Discharge Information Follow-up/Referrals: Cecelia Singh MD [Physician] - Discharge Medications: New tamsulosin 0.4 mg Capsule 0.4 mg PO QAM 30 Days Qty: 30 RF: 0 finasteride [Proscar] 5 mg Tablet 5 mg PO QAM 30 Days Qty: 30 RF: 0 atorvastatin 40 mg Tablet 40 mg PO HS Qty: 30 RF: 0 trazodone 50 mg Tablet 50 mg PO HS PRN (Reason: Insomnia) Qty: 30 RF: 0 aspirin 81 mg Tablet,Delayed Release (Dr/Ec) 81 mg PO QAM Qty: 30 RF: 0 alprazolam 0.25 mg Tablet 0.25 mg PO TID PRN (Reason: Anxiety) Qty: 30 RF: 0 albuterol sulfate 2.5 mg/0.5 mL Solution For Nebulization 5 mg inhalation Q6HRT Qty: 30 RF: 0 Continued omeprazole 40 mg capsule,delayed release(D
== END 2019-10-23 13:30 | disposition hospice, inpatient (51) | DRG 190 ==
LOC: ANHED 22:24 → ANHIMU 22:42 → ANH2MED 10-17 18:44 → ANHIMU 10-21 10:14 → ANH2MED 10-27 11:52 → ANHIMU 10-27 11:52
PROVIDERS: Family Medicine; Internal Medicine Cardiovascular Disease; Physician Assistant; Specialist; Admitting Provider Family Medicine; Emergency Provider Emergency Medicine; PCP Internal Medicine; Visit Provider Family Medicine
PROC: 4A023N7 Measurement of Cardiac Sampling and Pressure, Left Heart, Percutaneous Approach (ICD-10-PCS; CPT 93452; principal; 2019-10-16 14:00)
DX: J44.1 Chronic obstructive pulmonary disease with (acute) exacerbation (principal); I21.3 ST elevation (STEMI) myocardial infarction of unspecified site; I50.33 Acute on chronic diastolic (congestive) heart failure; J96.11 Chronic respiratory failure with hypoxia; I11.0 Hypertensive heart disease with heart failure; I27.20 Pulmonary hypertension, unspecified; I25.10 Atherosclerotic heart disease of native coronary artery without angina pectoris; Z99.81 Dependence on supplemental oxygen; E78.5 Hyperlipidemia, unspecified; N32.81 Overactive bladder; N40.1 Benign prostatic hyperplasia with lower urinary tract symptoms; R33.8 Other retention of urine; F32.9 Major depressive disorder, single episode, unspecified; F41.9 Anxiety disorder, unspecified; F10.11 Alcohol abuse, in remission; Z66 Do not resuscitate; Z79.899 Other long term (current) drug therapy; Z87.891 Personal history of nicotine dependence
CPT/HCPCS: 36415; 36600; 71046; 80048; 80061; 81001; 82375; 82805; 83050; 83735; 83880; 84443; 84484; 85025; 85027; 85380; 85610; 85730; 93005; 93308; 93458; 94002; 94003; 94640; 94660; 96374; 96375; 96376; 97161; 97166; 99285; A9270; C1887; C1894; G0378; J0461; J1644; J1940; J2250; J2920; J2930; J3010; J7030; J7040; J7512